=== PATIENT | female | born 1990 | race Caucasian/White ===

== ENCOUNTER 2016-09-10 22:09 | Inpatient (IN) | payer BC, MEDICAID ==
[2016-09-10] MEDS ORDERED: EPHEDRINE SULFATE INJ 50 MG/1 ML AMPULE IV ONE (22:35)
[2016-09-10] MEDS ORDERED: FENTANYL/BUPIVACAINE/NS/PF 100 ML EPI PRN (22:35)
[2016-09-10] MEDS ORDERED: DIPHENHYDRAMINE HCL 50 MG/ML VIAL IV PRN (22:35)
[2016-09-10] MEDS ORDERED: BENZOIN/ALOE VERA/STORAX/TOLU TINCTURE 60 ML TP PRN (22:35)
[2016-09-10] MEDS ORDERED: BUPIVACAINE HCL 0.25 % INJ/PF (2.5 MG/1 ML) 30 ML VIAL INFIL ONE (22:35)
[2016-09-10] MEDS ORDERED: EPHEDRINE SULFATE INJ 50 MG/1 ML AMPULE IV PRN (22:35)
[2016-09-10 22:52] LABS: ABSOLUTE BASOPHILS # (AUTO) 0.1 10^3/uL (0.0-0.2); ABSOLUTE MONOCYTES (AUTO) 0.9 10^3/uL (0.1-1.4); ABSOLUTE NEUT (AUTO) 11.2 10^3/uL (1.7-8.2); BASOPHILS % (AUTO) 0.4 % (0-2); EOSINOPHILS % (AUTO) 0.2 % (0-6); HEMATOCRIT 34.9 % (36.0-47.0); HEMOGLOBIN 11.9 g/dL (12.0-15.5); HGB HCT DIFFERENCE 0.8; LYMPHOCYTES % (AUTO) 13.9 % (13-45); MEAN CORPUSCULAR VOLUME 91 fl (80-97); MONOCYTES % (AUTO) 6.4 % (3-13); RED BLOOD COUNT 3.83 10^6/uL (3.72-5.28); RED CELL DISTRIBUTION WIDTH 13.9 % (11.5-14.0); SEGMENTED NEUTROPHILS % (AUTO) 79.1 % (42-78); WHITE BLOOD COUNT 14.1 10^3/uL (4.0-10.5)
[2016-09-10 22:57] LABS: APPEARANCE,URINE CLOUDY; BILIRUBIN,URINE NEGATIVE (NEGATIVE); GLUCOSE, URINE NEGATIVE (NEGATIVE); KETONES,URINE NEGATIVE (NEGATIVE); LEUKOCYTE ESTERASE,URINE MODERATE (NEGATIVE); NITRITE,URINE NEGATIVE (NEGATIVE); PROTEIN,URINE NEGATIVE (NEGATIVE); URINE SPECIFIC GRAVITY 1.009; UROBILINOGEN,URINE NEGATIVE mg/dL (<2.0)
[2016-09-10] MEDS ORDERED: BUPIVACAINE HCL 0.25 % INJ/PF (2.5 MG/1 ML) 30 ML VIAL ONE (23:03)
[2016-09-10] MEDS ORDERED: EPHEDRINE SULFATE INJ 50 MG/1 ML AMPULE ONE (23:03)
[2016-09-10] MEDS ORDERED: FENTANYL/BUPIVACAINE/NS/PF 200 MCG/100 ML RTUINJ EPI ONE (23:03)
[2016-09-10 23:29] LABS: URINE BARBITURATES SCREEN NEGATIVE; URINE METHADONE SCREEN NEGATIVE; URINE PHENCYCLIDINE SCREEN NEGATIVE
[2016-09-11] MEDS ORDERED: MISOPROSTOL 0.2 MG TABLET ONE (01:06)
[2016-09-11] MEDS ORDERED: LIDOCAINE 1% INJ-PF (10 MG/ML) 30 ML SDV ONE (01:06)
[2016-09-11] MEDS ORDERED: OXYTOCIN/NORMAL SALINE 20 UNIT/1,000 ML RTUINJ ONE (01:06)
[2016-09-11] MEDS ORDERED: ACETAMINOPHEN WITH CODEINE #3 TABLET PO PRN ×2 (02:01)
[2016-09-11] MEDS ORDERED: PSEUDOEPHEDRINE HCL 30 MG TABLET PO PRN (02:01)
[2016-09-11] MEDS ORDERED: DIPHENHYDRAMINE HCL 25 MG CAPSULE PO PRN (02:01)
[2016-09-11] MEDS ORDERED: BENZOCAINE/MENTHOL AEROSOL SPRAY 56 ML TOP PRN (02:01)
[2016-09-11] MEDS ORDERED: ACETAMINOPHEN 650 MG SUPP.RECT PR PRN (02:01)
[2016-09-11] MEDS ORDERED: PROMETHAZINE HCL 25 MG TABLET PO PRN (02:01)
[2016-09-11] MEDS ORDERED: ZOLPIDEM TARTRATE 5 MG TABLET PO PRN (02:01)
[2016-09-11] MEDS ORDERED: DIBUCAINE 1% OINTMENT 28 GM TP PRN (02:01)
[2016-09-11] MEDS ORDERED: PROMETHAZINE HCL INJ 25 MG/1 ML VIAL IV PRN (02:01)
[2016-09-11] MEDS ORDERED: OXYTOCIN/NORMAL SALINE 1,000 ML IV PRN (02:01)
[2016-09-11] MEDS ORDERED: NA PHOS,M-B/NA PHOS,DI-BA (ADULT) 133 ML ENEMA PR PRN (02:01)
[2016-09-11] MEDS ORDERED: PROMETHAZINE HCL 25 MG SUPP.RECT PR PRN (02:01)
[2016-09-11] MEDS ORDERED: MAGNESIUM HYDROXIDE SUSP 30 ML UDCUP PO PRN (02:01)
[2016-09-11] MEDS ORDERED: GLYCERIN/WITCH HAZEL LEAF 1 EACH MED..PAD TP PRN (02:01)
[2016-09-11] MEDS ORDERED: DIPH/PERTUSS(ACELL)/TETANUS VAC/PF 0.5 ML SYR (>=10YO) IM PRN (02:01)
--- NOTE | 2016-09-11 04:27 | Admission Physical ---
Datetime Report Generated by CPN: 09/11/2016 04:27 CURRENT ADMISSION Chief Complaint: Uterine Contractions Indication for Induction: Not Applicable Admit Plan: Admit to Unit; Initiate Labor Protocol ALLERGIES Medication Allergies: Yes Medication Allergies: Penicillins/MO/Hives (09/10/2016) Latex: No Latex Allergies Food Allergies: none Environmental Allergies: none OBSTETRICAL HISTORY EDC: 09/03/2016 00:00 : 3 Para: 1 Term: 1 : 0 SAB: 0 IAB: 0 Ectopic: 0 Livin Cesareans: 0 VBACs: 0 Multiple Births: 0 Current Procedures: Ultrasound; NST Obstetrical History Comments: G1: SAB G2:10/03/13 39.2 weeks G3: current SEE RECORDS Alcohol: No Marijuana : No Cocaine: No Other Illicit Drugs: No Cigarettes: Never Smoker. [id number] PHYSICAL EXAM General: Normal HEENT: Normal Neurologic: Normal Thyroid: Deferred Heart: Normal Lungs: Normal Breast: Deferred Back: Normal Abdomen: Normal Genitourinary Exam: Normal Extremities: Normal DTRs: Normal Pelvic Type: Adequate Vital Signs: Reviewed; Within Normal Limits VAGINAL EXAM Dilatation: 6 Effacement: 90 Station: -1 MEMBRANES Membranes: Intact FETUS A EGA: 41.0 Monitoring: External US FHR- Baseline: 135 Variability: Moderate 6-25bpm Accelerations: 15X15 Decelerations: None FHR Category: Category I PLANS FOR LABOR AND DELIVERY Labor and Delivery: Other, Specify Pain Management: Epidural Feeding Preference: Breast Benefit of Breast Feed Discussed: Yes Circumcision: N/A INFORMED CONSENT Signature: with User ID: [email or web address]
--- NOTE | 2016-09-11 04:28 | Delivery Summary ---
Del Sum A-C Datetime Report Generated by CPN: 09/11/2016 04:28 ADMISSION DATA Chief Complaint: Uterine Contractions Indication for Induction: Not Applicable Admission Impression: Postterm, Intrauterine ; Active Labor; Intact Membranes DELIVERY PERSONNEL Delivery Doctor:: Grady Clayton, DO Labor and Delivery Nurse:: Emmy Espinosa, fraud representative Nurse:: April Shea, RN Edging Machine Setter/AIR TRANSPORTATION PROVIDER: Hakan Ulicesel, AIR TRANSPORTATION PROVIDER MATERNAL INFORMATION Delivery Anesthesia: Epidural Medications After Delivery: Pitocin Drip 20 Units/1000ml NSS Estimated Blood Loss (ml): 200 Maternal Complications: None Provider Comments: of viable female in TERRY position Loose Nuchal cord x1 easily reduced Placenta delievered spontaneous and intact with 3v cord Fundus firm LABOR SUMMARY EDC: 09/03/2016 00:00 No. Babies in Womb: 1 Attempted: No Labor Anesthesia: Epidural LABOR INFORMATION Reason for Induction: Not Applicable Onset of Labor: 09/09/2016 22:29 Complete Dilatation: 09/10/2016 01:13 Oxytocin: N/A Group B Beta Strep: negative Antibiotics # of Doses: 0 Steroids Given: None Reason Steroids Not Administered: Not Applicable MEMBRANES Membranes Rupture Method: Spontaneous STAGES OF LABOR Stage 1 hr: 2 Stage 1 min: 44 Stage 2 hr: 24 Stage 2 min: 32 Stage 3 hr: 0 Stage 3 min: 4 Total Time in Labor hr: 27 Total Time in Labor min: 20 VAGINAL DELIVERY Episiotomy: None Laceration Extension: Second Degree Laceration Type: Perineal Laceration Repair: Yes Laceration Repair Note: clitoral and perineal lacs repired with 2-0 and 3-0 chromic in usual fashion with good hemostasis Sponge Count Correct: N/A Sharps Count Correct: Yes CSECTION DELIVERY Primary Indication: N/A Secondary Indication: N/A CSection Incidence: N/A Labor: N/A Elective: N/A CSection Incision: N/A BABY A INFORMATION Infant Delivery Date/Time: 09/11/2016 01:45 Method of Delivery: Vaginal Born in Route : No : N/A Forceps: N/A Vacuum Extraction: N/A Shoulder Dystocia : No PRESENTATION/POSITION BABY A Presentation: Cephalic Cephalic Presentation: Vertex Vertex Position: Right Occipital Anterior Breech Presentation: N/A PLACENTA INFORMATION BABY A Placenta Delivery Time : 09/11/2016 01:49 Placenta Method of Delivery: Spontaneous Placenta Status: Delivered SCORES BABY A Heart Rate 1 min: >100 bpm Resp Effort 1 min: Good Cry Reflex Irritability 1 min: Cough or Sneeze or Pulls Away Muscle Tone 1 min: Active Motion Color 1 min: Blue/Pale Resuscitation Effort 1 min: Tactile Stimulation SCORE 1 MIN: 8 Heart Rate 5 min: >100 bpm Resp Effort 5 min: Good Cry Reflex Irritability 5 min: Cough or Sneeze or Pulls Away Muscle Tone 5 min: Active Motion Color 5 min: Body [place], Extremities Blue SCORE 5 MIN: 9 INFORMATION BABY A Gestational Age at Delivery: 41.1 Gestational Status: Late Term- 41- 41.6 Weeks Infant Outcome : Liveborn Condition : Stable Infant Sex: Female IDENTIFICATION BABY A Infant Verification Date/Time: 09/11/2016 01:53 ID Band Number: [id number] Mother's Name Verified: Yes Infant RN Verifying : B Shabbir, RN Additional Verifying Personnel: S Marley, RN WEIGHT/LENGTH BABY A Infant Birthweight (gm): 3240 Weight (lb): 7 Weight (oz): 2 Infant Length (in): 20.00 Infant Length (cm): 50.80 CORD INFORMATION BABY A No. Cord Vessels: 3 Nuchal Cord : Around Neck x1, Loose Cord Blood Taken: Yes-For Eval (Mom's Blood Type - or O+) Infant Suction: Mouth; Nose ASSESSMENT BABY A Complications: None Physical Findings at Delivery: Within Normal Limits Infant Respirations: Appears Normal Skin to Skin: Yes Bisque Grader/ALS Called : No Care By: B Shea, RN Transferred To: Remains with Mother BABY B INFORMATION : N/A SIGNATURES Signature: with User ID: [email or web address]
--- NOTE | 2016-09-11 04:45 | L&D General Admission ---
General Admit Datetime Report Generated by CPN: 09/11/2016 04:45 INFORMATION Patient Age: 25 (01/03/2016 20:08:QS system process) EDC: 09/03/2016 00:00 (08/29/2016 16:09:Lisa Gonzalez RN) : 3 (08/29/2016 16:09:Lisa Gonzalez RN) Para: 1 (09/03/2016 11:21:Christel Roach RN) Para: 1 (08/29/2016 16:09:Lisa Gonzalez RN) Term: 1 (08/29/2016 16:09:Christel Roach RN) : 0 (08/29/2016 16:09:Christel Roach RN) Spontaneous Abortions: 0 (08/29/2016 16:09:Christel Roach RN) Induced Abortions: 0 (08/29/2016 16:09:Christel Roach RN) Livin (08/29/2016 16:09:Lisa Gonzalez RN) Cesareans: 0 (08/29/2016 16:09:Christel Roach RN) VBACs: 0 (08/29/2016 16:09:Christel Roach RN) Ectopic: 0 (08/29/2016 16:09:Christel Roach RN) Multiple Births: 0 (08/29/2016 16:09:Christel Roach RN) Baby, Number in Womb: 1 (09/03/2016 11:21:ANGY Draper) Baby, Number in Womb: 1 (08/29/2016 16:46:Lisa Gonzalez RN) CARE Primary Director Of Midwifery/Staff Midwife: [facility] (08/29/2016 16:09:Lisa Gonzalez RN) Adequate Care: Yes (08/29/2016 16:09:Christel Roach RN) Prepregnancy Weight (lb): 148 (08/29/2016 16:09:Lisa Gonzalez RN) Prepregnancy Weight (kg): 67.3 (08/29/2016 16:09:QS system process) Height (in): 63 (09/11/2016 04:25:QS system process) Height (in): 63 (09/10/2016 22:21:QS system process) Height (in): 63 (09/03/2016 11:02:QS system process) Height (in): 63 (09/03/2016 10:52:QS system process) Height (in): 63 (08/29/2016 16:12:QS system process) Height (in): 63 (08/29/2016 16:06:QS system process) Height (in): 63 (01/03/2016 20:08:QS system process) ALLERGIES Medication Allergy: Yes (08/29/2016 16:09:Lisa Gonzalez RN) Medication Allergies: Penicillins/MO/Hives (09/10/2016) (09/10/2016 22:21:QS system process) Medication Allergies: Penicillins/MO/Hives (09/03/2016) (09/03/2016 10:52:QS system process) Medication Allergies: Penicillins/MO/Hives (08/29/2016) (08/29/2016 16:05:QS system process) Medication Allergies: Penicillins/MO/Hives (10/03/2013) (01/03/2016 20:08:QS system process) Latex Allergy: No Latex Allergies (08/29/2016 16:09:Lisa Gonzalez RN) Food Allergies: none (08/29/2016 16:09:April Shea RN) Environmental Allergies: none (08/29/2016 16:09:April Shea RN) COMMUNICATION Primary Language: Singaporean (08/29/2016 16:09:Lisa Gonzalez RN) Medical Tx Preferred Language: Singaporean (08/29/2016 16:09:Christel Roach RN) Communication Barrier(s): None (08/29/2016 16:09:Christel Roach RN) DEMOGRAPHICS Address: [address] [place] [id number] (01/03/2016 20:08:QS system process) Zipcode: [id number] (01/03/2016 20:08:QS system process) Home (01/03/2016 20:08:QS system process) Work (01/03/2016 20:08:QS system process) SSN: [id number] (01/03/2016 20:08:QS system process) Next of Kin Name: ELIEZER JC (01/03/2016 20:08:QS system process) Next of Kin (01/03/2016 20:08:QS system process) Next of Kin Relationship: SPO (01/03/2016 20:08:QS system process) Date of : 1990 (01/03/2016 20:08:QS system process) Marital Status: (01/03/2016 20:08:QS system process) Sex: Female (01/03/2016 20:08:QS system process) Race: (01/03/2016 20:08:QS system process) Ethnicity: Non- or (01/03/2016 20:08:QS system process) Zoroastrian: Other (01/03/2016 20:08:QS system process) DRUG AND ALCOHOL USE Alcohol: No (08/29/2016 16:09:Emmy Ellsworth RN) Cigarettes: Never Smoker. [id number] (08/29/2016 16:09:Emmy Ellsworth RN) Marijuana: No (08/29/2016 16:09:Emmy Ellsworth RN) Cocaine: No (08/29/2016 16:09:Emmy Ellsworth RN) Other Illicit Drugs: No (08/29/2016 16:09:Emmy Ellsworth RN) VACCINE HISTORY Influenza Vaccine: Yes (08/29/2016 16:09:Lisa Gonzalez RN) Influenza Date: 06/25/16 (08/29/2016 16:09:Lisa Gonzalez RN) Pneumococcal Vaccine: No (08/29/2016 16:09:April Shea RN) Tetanus Vaccine: Yes (08/29/2016 16:09:Lisa Gonzalez RN) Tetanus Date: 08/23/2013 (08/29/2016 16:09:Lisa Gonzalez RN) Tdap Vaccine: Yes (08/29/2016 16:09:Lisa Gonzalez RN) Tdap Date: 08/23/2013 (08/29/2016 16:09:Lisa Gonzalez RN) Hepatitis B Vaccine: Yes (08/29/2016 16:09:April Shea RN) Practice Director: [facility] (08/29/2016 16:09:Emmy Ellsworth RN) Feeding Preference: Breast (08/29/2016 16:09:Emmy Ellsworth RN) Benefit of Breast Feed Discussed: Yes (08/29/2016 16:09:Emmy Ellsworth RN) Circumcision: N/A (08/29/2016 16:09:Emmy Ellsworth RN) Classes Attended: No (08/29/2016 16:09:Emmy Ellsworth RN) Tubal Ligation: No (08/29/2016 16:09:Emmy Ellsworth RN) Tubal Authorization Signed: N/A (08/29/2016 16:09:Emmy Ellsworth RN) Consent: N/A (08/29/2016 16:09:Emmy Ellsworth RN) Consent Signed: N/A (08/29/2016 16:09:Emmy Ellsworth RN) Pain Management Plans: Epidural (08/29/2016 16:09:Emmy Ellsworth RN) Plans for Labor and Delivery: Other, Specify (08/29/2016 16:09:Emmy Ellsworth RN) Other Labor and Delivery Plans: delayed cord clamping, guide baby out (08/29/2016 16:09:Emmy Ellsworth RN) Support Person: Eliezer Jc (08/29/2016 16:09:Emmy Ellsworth RN) Support Person Relationship: (08/29/2016 16:09:Emmy Ellsworth RN) Cultural/Spritual Practice: No (08/29/2016 16:09:Emmy Ellsworth RN) Spir/Cult Dietary Needs: No (08/29/2016 16:09:Emmy Ellsworth RN) LIVING SITUATION/DISCHARGE PLAN Living Arrangements: House (08/29/2016 16:09:Emmy Ellsworth RN) Adequate Access to:: Electric; Heat; Refrigeration; Plumbing/Running water; Phone; Transportation (08/29/2016 16:09:Emmy Ellsworth RN) WIC Program: Yes (08/29/2016 16:09:Emmy Ellsworth RN) Discharge Spring Assembler Person: Eliezer Citlali (08/29/2016 16:09:Emmy Ellsworth RN) Person to Help after Discharge: yes (08/29/2016 16:09:Emmy Ellsworth RN) Currently Using Commun Resources: Yes (08/29/2016 16:09:Emmy Ellsworth RN) Specify Current Resource Used: Medicaid (08/29/2016 16:09:Emmy Ellsworth RN) Car Seat for Discharge: Yes (08/29/2016 16:09:Emmy Ellsworth RN) Adoption Requested: No (Annotations: Data stored by CPN on behalf of user) (08/29/2016 16:09:Emmy Ellsworth RN) LABS Blood Type: O Negative (08/29/2016 16:09:Lisa Gonzalez RN) Antibody Screen: negative (08/29/2016 16:09:Emmy Ellsworth RN) Hemoglobin: 11.9 L (09/10/2016 22:39:QS system process) Hematocrit: 34.9 L (09/10/2016 22:39:QS system process) MCV: 91 (09/10/2016 22:39:QS system process) Group Beta Strep: negative (08/29/2016 16:09:Emmy Ellsworth RN) Gonorrhea: Negative (08/29/2016 16:09:Lisa Gonzalez RN) Chlamydia: Negative (08/29/2016 16:09:Lisa Gonzalez RN) RPR/VDRL: Nonreactive (08/29/2016 16:09:Emmy Ellsworth RN) Hepatitis B: Negative (08/29/2016 16:09:Lisa Gonzalez RN) Rubella: Immune (08/29/2016 16:09:Lisa Gonzalez RN) OB/PREVIOUS HISTORY Current Procedures: Ultrasound; NST (08/29/2016 16:09:April Shea RN) Comments Obstetrical History: G1: SAB G2:10/03/13 39.2 weeks G3: current (08/29/2016 16:09:Lisa Gonzalez RN)
--- NOTE | 2016-09-11 04:45 | L&D Flow Sheet ---
LD Flowsheet Datetime Report Generated by CPN: 09/11/2016 04:45 Datetime: 09/11/2016 04:13 Vital Signs Stage of : Recovery (Emmy Ellsworth RN) NBP Sys/Nelly/Mean (mmHg): 111 (QS system process) : 57 (QS system process) : 78 (QS system process) Pulse: 88 (QS system process) Temperature Route: Oral (Emmy Ellsworth RN) Pain Pain Scale: 0 (Emmy Errichiello, RN) Pain Presence: None/Denies (Emmy Errichiello, RN) Pain Type: N/A (Emmy Errichiello, RN) Datetime: 09/11/2016 03:58 Vital Signs Stage of : Recovery (Emmy Errichiello, RN) NBP Sys/Nelly/Mean (mmHg): 111 (QS system process) : 55 (QS system process) : 77 (QS system process) Pulse: 92 (QS system process) Pain Pain Scale: 0 (Emmy Errichiello, RN) Pain Presence: None/Denies (Emmy Errichiello, RN) Pain Type: N/A (Emmy Errichiello, RN) Datetime: 09/11/2016 03:43 Vital Signs Stage of : Recovery (Emmy Errichiello, RN) NBP Sys/Nelly/Mean (mmHg): 114 (QS system process) : 57 (QS system process) : 80 (QS system process) Pulse: 99 (QS system process) Pain Pain Scale: 0 (Emmy Errichiello, RN) Pain Presence: None/Denies (Emmy Samichiello, RN) Pain Type: N/A (Emmy Errichiello, RN) Datetime: 09/11/2016 03:28 Vital Signs Stage of : Recovery (Emmy Errichiello, RN) NBP Sys/Nelly/Mean (mmHg): 110 (QS system process) : 63 (QS system process) : 81 (QS system process) Pulse: 96 (QS system process) Pain Pain Scale: 0 (Emmy Ellsworth RN) Pain Presence: None/Denies (Emmy Ellsworth RN) Pain Type: N/A (Emmy Seng, RN) Datetime: 09/11/2016 03:13 Vital Signs Stage of : Recovery (Emmy Ellsworth RN) NBP Sys/Nelly/Mean (mmHg): 108 (QS system process) : 60 (QS system process) : 79 (QS system process) Pulse: 100 (QS system process) Pain Pain Scale: 0 (Emmy Ellsworth, RN) Pain Presence: None/Denies (Emmy Ellsworth, RN) Pain Type: N/A (Emmy Samichiello, RN) Datetime: 09/11/2016 02:58 Vital Signs Stage of : Recovery (Emmy Ellsworth, RN) NBP Sys/Nelly/Mean (mmHg): 112 (QS system process) : 61 (QS system process) : 81 (QS system process) Pulse: 92 (QS system process) Pain Pain Scale: 0 (Emmy Ellsworth, RN) Pain Presence: None/Denies (Emmy Ellsworth, RN) Pain Type: N/A (Emmy Samichiello, RN) Datetime: 09/11/2016 02:43 Vital Signs Stage of : Recovery (Emmy Ellsworth, RN) NBP Sys/Nelly/Mean (mmHg): 119 (QS system process) : 64 (QS system process) : 84 (QS system process) Pulse: 97 (QS system process) Pain Pain Scale: 0 (Emmy Ellsworth RN) Pain Presence: None/Denies (Emmy Ellsworth RN) Pain Type: N/A (Emmy Ellsworth, RN) Datetime: 09/11/2016 02:29 Vital Signs Stage of : Recovery (Emmy Ellsworth RN) NBP Sys/Nelly/Mean (mmHg): 128 (QS system process) : 66 (QS system process) : 90 (QS system process) Pulse: 88 (QS system process) Pain Pain Scale: 0 (Emmy Ellsworth RN) Pain Presence: None/Denies (Emmy Ellsworth, RN) Pain Type: N/A (Emmy Samichikinga, RN) Datetime: 09/11/2016 02:14 Vital Signs Stage of : Recovery (Emmy Ellsworth, JASSON) NBP Sys/Nelly/Mean (mmHg): 95 (QS system process) : 50 (QS system process) : 66 (QS system process) Pulse: 105 (QS system process) Pain Pain Scale: 0 (Emmy Errichiello, RN) Pain Presence: None/Denies (Emmy Errichiello, RN) Pain Type: N/A (Emmy Errichiello, RN) Datetime: 09/11/2016 02:08 NBP Sys/Nelly/Mean (mmHg): 115 (QS system process) : 70 (QS system process) : 88 (QS system process) Pulse: 110 (QS system process) Datetime: 09/11/2016 02:00 Vital Signs Stage of : Recovery (Emmy Errichiello, RN) Pain Pain Scale: 0 (Emmy Errichiello, RN) Pain Presence: None/Denies (Emmy Errichiello, RN) Pain Type: N/A (Emmy Errichiello, RN) Datetime: 09/11/2016 01:50 Vital Signs Stage of : Recovery (Emmy Errichiello, RN) Datetime: 09/11/2016 01:45 Comments: of baby girl at 0145 (Emmy Errichiello, RN) Membrane Comments: Membranes ruptured at unknown time. Pt did not rupture prior to coming to hospital and remained intact prior to delivery. (Emmy Errichiello, RN) Datetime: 09/11/2016 01:30 Vital Signs Stage of : Labor (Emmy Errichiello, RN) Uterine Activity Monitor Mode: External (Emmy JASSON Ellsworth) Monitor Interventions for UA: [place] Adjusted (Emmy Ellsworth RN) Frequency (min): 1-3.5 (Emmy Ellsworth RN) Quality: Moderate (Emmy Seng, RN) Duration (sec): 50-100 (Emmy Ellsworth RN) Resting Tone (Palpate): Relaxed (Emmy Seng, JASSON) Assessment A Monitor Mode: External US (Emmy Errichiello, RN) Monitor Interventions for FHR: Ultrasound Adjusted (Emmy Ellsworth RN) FHR Baseline Rate : 130 (Emmy Ellsworth RN) FHR Baseline Changes: No Baseline Change (Emmy Ellsworth RN) Variability: Moderate 6-25 bpm (Emmy Ellsworth RN) Accelerations: 15X15 (Emmy Ellsworth RN) Decelerations: None (Emmy Ellsworth RN) Patient Position/Activity: Left Tilt; Semi-Fowlers (Emmy Ellsworth RN) Communication Communication: RN at Bedside; RN Reviewed Strip (Emmy Ellsworth RN) Datetime: 09/11/2016 01:29 NBP Sys/Nelly/Mean (mmHg): 147 (QS system process) : 70 (QS system process) : 100 (QS system process) Pulse: 106 (QS system process) LaborFlag: Labor (QS system process) Datetime: 09/11/2016 01:17 Stage 2 Stage 2 Comments: Rn at bedside continuously monitoring FHR while pushing (April Shea, RN) Datetime: 09/11/2016 01:16 Communication Communication: Provider at Bedside (April Shea, RN) Communication Comments: Dr Clayton at bedside (April Shea, RN) Datetime: 09/11/2016 01:14 NBP Sys/Nelly/Mean (mmHg): 147 (QS system process) : 67 (QS system process) : 96 (QS system process) Pulse: 100 (QS system process) LaborFlag: Labor (QS system process) Datetime: 09/11/2016 01:13 Vaginal Exam Dilatation (cm): 10.0 (Emmy Errichiello, RN) Effacement (%): 100 (Emmy Errichiello, RN) Station: 1 (Emmy Errichiello, RN) Exam by: C. Fore, RN (Emmy Errichiello, RN) Datetime: 09/11/2016 01:07 I/O Interventions: Méndez Discontinued (Emmy Errichiello, RN) Datetime: 09/11/2016 01:01 Vaginal Exam Dilatation (cm): 9.5 (Emmy Errichiello, RN) Effacement (%): 100 (Emmy Errichiello, RN) Station: 1 (Emmy Errichiello, RN) Exam by: C Fore RN (Emmy Errichiello, RN) Datetime: 09/11/2016 01:00 Vital Signs Stage of : Labor (Emmy Errichiello, RN) Uterine Activity Monitor Mode: External (Emmy Ellsworth RN) Frequency (min): 1.5-4 (Emmy Ellsworth RN) Quality: Moderate (Emmy Ellsworth RN) Resting Tone (Palpate): Relaxed (Emmy Ellsworth RN) Assessment A Monitor Mode: External US (Emmy Ellsworth RN) Monitor Interventions for FHR: Ultrasound Adjusted (Emmy Ellsworth RN) FHR Baseline Rate : 130 (Emmy Ellsworth RN) FHR Baseline Changes: No Baseline Change (Emmy Ellsworth RN) Variability: Moderate 6-25 bpm (Emmy Ellsworth RN) Accelerations: 15X15 (Emmy Ellsworth RN) Decelerations: None (Emmy Ellsworth RN) Pain Presence: Intermittent (Emmy Ellsworth RN) Pain Type: Pressure (Emmy Ellsworth RN) Pain Location: Abdomen (Emmy Ellsworth RN) Pain Relief Measures: Comfort Measures (Emmy Ellsworth RN) Patient Position/Activity: Left Tilt; Semi-Fowlers (Emmy Ellsworth RN) Comfort Measures: Breathing/Relaxation; Coaching; Family Support (Emmy Ellsworth RN) Communication Communication: RN at Bedside; RN Reviewed Strip (Emmy Samyoselynello, RN) LaborFlag: Labor (QS system process) Datetime: 09/11/2016 00:59 NBP Sys/Nelly/Mean (mmHg): 135 (QS system process) : 79 (QS system process) : 101 (QS system process) Pulse: 100 (QS system process) LaborFlag: Labor (QS system process) Datetime: 09/11/2016 00:43 NBP Sys/Nelly/Mean (mmHg): 119 (QS system process) : 75 (QS system process) : 91 (QS system process) Pulse: 92 (QS system process) LaborFlag: Labor (QS system process) Datetime: 09/11/2016:30 Vital Signs Stage of : Labor (Emmy Errichiello, RN) Uterine Activity Monitor Mode: External (Emmy Ellsworth RN) Frequency (min): 1.5-3 (Emmy Ellsworth RN) Quality: Moderate (Emmy Ellsworth RN) Duration (sec): 50-90 (Emmy Ellsworth RN) Resting Tone (Palpate): Relaxed (Emmy Ellsworth RN) Assessment A Monitor Mode: External US (Emmy Ellsworth RN) Monitor Interventions for FHR: Ultrasound Adjusted (Emmy Ellsworth RN) FHR Baseline Rate : 130 (Emmy Ellsworth RN) FHR Baseline Changes: No Baseline Change (Emmy Ellsworth RN) Variability: Moderate 6-25 bpm (Emmy Ellsworth RN) Accelerations: 15X15 (Emmy Ellsworth RN) Decelerations: None (Emmy Ellsworth RN) Pain Presence: Intermittent (Emmy Ellsworth RN) Pain Type: Pressure (Emmy Ellsworth RN) Pain Coping: Talking Through Contractions (Emmy Ellsworth RN) Patient Position/Activity: Left Tilt; Semi-Fowlers (Emmy Ellsworth RN) Communication Communication: RN at Bedside; RN Reviewed Strip (Emmy Ellsworth RN) LaborFlag: Labor (QS system process) Datetime: 09/11/2016 00:28 NBP Sys/Nelly/Mean (mmHg): 119 (QS system process) : 74 (QS system process) : 90 (QS system process) Pulse: 91 (QS system process) LaborFlag: Labor (QS system process) Datetime: 09/11/2016 00:15 Vital Signs Stage of : Labor (Emmy Errichiello, RN) Uterine Activity Monitor Mode: External (Emmy Ellsworth, RN) Monitor Interventions for UA: [place] Adjusted (Emmy Ellsworth, RN) Frequency (min): 3 (Emmy Ellsworth, RN) Quality: Moderate (Emmy Ellsworth, RN) Duration (sec): 70-110 (Emmy Ellsworth, RN) Resting Tone (Palpate): Relaxed (Emmy Ellsworth, RN) Assessment A Monitor Mode: External US (Emmy Ellsworth, RN) Monitor Interventions for FHR: Ultrasound Adjusted (Emmy Ellsworth, RN) FHR Baseline Rate : 130 (Emmy Ellsworth, RN) FHR Baseline Changes: No Baseline Change (Emmy Ellsworth, RN) Variability: Moderate 6-25 bpm (Emmy Erryoselynello, RN) Accelerations: 15X15 (Emmy Erryoselynello, RN) Decelerations: None (Emmy Reaello, RN) Patient Position/Activity: Left Tilt; Semi-Fowlers (Emmy Ellsworth, RN) Communication Communication: RN Reviewed Strip (Emmy Errichiello, RN) Datetime: 09/11/2016 00:14 NBP Sys/Nelly/Mean (mmHg): 116 (QS system process) : 74 (QS system process) : 87 (QS system process) Pulse: 91 (QS system process) LaborFlag: Labor (QS system process) Datetime: 09/11/2016 00:00 Vital Signs Stage of : Labor (Emmy Ellsworth RN) Uterine Activity Monitor Mode: External (Emmy Ellsworth RN) Monitor Interventions for UA: [place] Adjusted (Emmy Ellsworth RN) Frequency (min): 4-5 (Emmy Ellsworth RN) Quality: Mild/Moderate (Emmy Ellsworth RN) Duration (sec): 90-120 (Emmy Ellsworth RN) Resting Tone (Palpate): Relaxed (Emmy Ellsworth RN) Assessment A Monitor Mode: External US (Emmy Ellsworth RN) Monitor Interventions for FHR: Ultrasound Adjusted (Emmy Ellsworth RN) FHR Baseline Rate : 130 (Emmy Ellsworth RN) FHR Baseline Changes: No Baseline Change (Emmy Ellsworth RN) Variability: Moderate 6-25 bpm (Emmy Ellsworth RN) Accelerations: 15X15 (Emmy Ellsworth RN) Decelerations: None (Emmy Ellsworth RN) Pain Pain Scale: 1 (Emmy Ellsworth RN) Pain Presence: Intermittent (Emmy Ellsworth RN) Pain Type: Pressure (Emmy Ellsworth RN) Pain Location: Abdomen (Emmy Ellsworth RN) Pain Goal: 1 (Emmy Ellsworth RN) Pain Relief Measures: Comfort Measures (Emmy Ellsworth RN) Pain Coping: Talking Through Contractions (Emmy Ellsworth RN) Patient Position/Activity: Left Tilt; Semi-Fowlers (Emmy Ellsworth RN) Comfort Measures: Breathing/Relaxation; Coaching; Family Support (Emmy Ellsworth RN) Communication Communication: RN at Bedside; RN Reviewed Strip (Emmy Ellsworth RN) LaborFlag: Labor (QS system process) Datetime: 09/10/2016 23:58 NBP Sys/Nelly/Mean (mmHg): 108 (QS system process) : 66 (QS system process) : 81 (QS system process) Pulse: 89 (QS system process) LaborFlag: Labor (QS system process) Datetime: 09/10/2016 23:45 Vital Signs Stage of : Labor (Emmy Errichiello, RN) NBP Sys/Nelly/Mean (mmHg): 115 (QS system process) : 65 (QS system process) : 80 (QS system process) Pulse: 96 (QS system process) Uterine Activity Monitor Mode: External (Emmy Ellwsorth, RN) Monitor Interventions for UA: [place] Adjusted (Emmy Ellsworth, RN) Frequency (min): 3-5 (Emmy Ellsworth RN) Quality: Mild/Moderate (Emmy Ellsworth, RN) Duration (sec): 40-110 (Emmy Ellsworth, RN) Resting Tone (Palpate): Relaxed (Emmy Ellsworth, RN) Assessment A Monitor Mode: External US (Emmy Ellsworth, RN) Monitor Interventions for FHR: Ultrasound Adjusted (Emmy Ellsworth, RN) FHR Baseline Rate : 120 (Emmy Ellsworth, RN) FHR Baseline Changes: No Baseline Change (Emmy Ellsworth, RN) Variability: Moderate 6-25 bpm (Emmy Seng, RN) Accelerations: 15X15 (Emmy Reaello, RN) Decelerations: None (Emmy Reaello, RN) Pain Pain Scale: 2 (Emmy Ellsworth RN) Pain Presence: Intermittent (Emmy Ellsworth RN) Pain Type: Pressure (Emmy Ellsworth RN) Pain Goal: 1 (Emmy Ellsworth RN) Pain Relief Measures: Comfort Measures (NITIN Shah Pain Coping: Talking Through Contractions (Emmy Ellsworth RN) Patient Position/Activity: Left Tilt; Semi-Fowlers (Emmy Ellsworth RN) Comfort Measures: Breathing/Relaxation; Coaching; Family Support (Emmy Ellsworth RN) Communication Communication: RN at Bedside; RN Reviewed Strip (Emmy Ellsworth RN) LaborFlag: Labor (QS system process) Datetime: 09/10/2016 23:30 Vital Signs Stage of : Labor (Emmy Errichiello, RN) Uterine Activity Monitor Mode: External (Emmy Seng, RN) Frequency (min): 2.5-3 (Emmy Seng, RN) Quality: Moderate (Emmy Samichikinga, RN) Duration (sec): 60-110 (Emmy Samichiello, RN) Resting Tone (Palpate): Relaxed (Emmy Errichiello, RN) Assessment A Monitor Mode: External US (Emmy Ellsworth RN) Monitor Interventions for FHR: Ultrasound Adjusted (Emmy Ellsworth RN) FHR Baseline Rate : 125 (Emmy Ellsworth RN) FHR Baseline Changes: No Baseline Change (Emmy Ellsworth RN) Variability: Moderate 6-25 bpm (Emmy Ellsworth RN) Accelerations: 15X15 (Emmy Ellsworth RN) Decelerations: None (Emmy Ellsworth RN) Patient Position/Activity: Left Tilt; Semi-Fowlers (Emmy Ellsworth RN) Communication Communication: RN at Bedside; RN Reviewed Strip (Emmy Ellsworth RN) Datetime: 09/10/2016 23:28 NBP Sys/Nelly/Mean (mmHg): 94 (QS system process) : 52 (QS system process) : 70 (QS system process) Pulse: 92 (QS system process) LaborFlag: Labor (QS system process) Datetime: 09/10/2016 23:27 NBP Sys/Nelly/Mean (mmHg): 98 (QS system process) : 56 (QS system process) : 74 (QS system process) Pulse: 93 (QS system process) LaborFlag: Labor (QS system process) Datetime: 09/10/2016 23:26 NBP Sys/Nelly/Mean (mmHg): 101 (QS system process) : 59 (QS system process) : 77 (QS system process) Pulse: 101 (QS system process) LaborFlag: Labor (QS system process) Datetime: 09/10/2016 23:25 NBP Sys/Nelly/Mean (mmHg): 103 (QS system process) : 59 (QS system process) : 75 (QS system process) Pulse: 90 (QS system process) Vaginal Exam Dilatation (cm): 6.0 (Emmy Ellsworth RN) Effacement (%): 90 (Emmy Ellsworth RN) Station: 0 (Emmy Ellsworth RN) Exam by: Jack Espinosa RN (Emmy Ellsworth RN) I/O Interventions: Méndez Cath Inserted (Emmy Ellsworth RN) LaborFlag: Labor (QS system process) Datetime: 09/10/2016 23:24 NBP Sys/Nelly/Mean (mmHg): 103 (QS system process) : 58 (QS system process) : 79 (QS system process) Pulse: 93 (QS system process) LaborFlag: Labor (QS system process) Datetime: 09/10/2016 23:23 NBP Sys/Nelly/Mean (mmHg): 103 (QS system process) : 55 (QS system process) : 74 (QS system process) Pulse: 100 (QS system process) LaborFlag: Labor (QS system process) Datetime: 09/10/2016 23:22 NBP Sys/Nelly/Mean (mmHg): 109 (QS system process) : 68 (QS system process) : 82 (QS system process) Pulse: 111 (QS system process) LaborFlag: Labor (QS system process) Datetime: 09/10/2016 23:21 NBP Sys/Nelly/Mean (mmHg): 119 (QS system process) : 70 (QS system process) : 88 (QS system process) Pulse: 110 (QS system process) Epidural Procedure Other: Pump Started (Emmy Ellsworth RN) LaborFlag: Labor (QS system process) Datetime: 09/10/2016 23:20 NBP Sys/Nelly/Mean (mmHg): 127 (QS system process) : 81 (QS system process) : 98 (QS system process) Pulse: 105 (QS system process) LaborFlag: Labor (QS system process) Datetime: 09/10/2016 23:19 NBP Sys/Nelly/Mean (mmHg): 130 (QS system process) : 87 (QS system process) : 105 (QS system process) Pulse: 106 (QS system process) LaborFlag: Labor (QS system process) Datetime: 09/10/2016 23:18 NBP Sys/Nelly/Mean (mmHg): 128 (QS system process) : 67 (QS system process) : 91 (QS system process) Pulse: 100 (QS system process) Epidural Procedure: Cath Placed; Loading Dose (Emmy Errichiello, RN) LaborFlag: Labor (QS system process) Datetime: 09/10/2016 23:17 Anesthesia Anesthesia Plans: Epidural (Emmy Errichiello, RN) Epidural Procedure: Test Dose (Emmy Errichiello, RN) Datetime: 09/10/2016 23:11 NBP Sys/Nelly/Mean (mmHg): 131 (QS system process) : 71 (QS system process) : 95 (QS system process) Pulse: 99 (QS system process) LaborFlag: Labor (QS system process) Datetime: 09/10/2016 23:07 Anesthesia Comments: Dr Joce at b/s (Emmy Errichiello, RN) Datetime: 09/10/2016 23:06 Comments: Pt sitting up for epidural (Emmy Errichiello, RN) Datetime: 09/10/2016 23:01 Procedure TIME OUT Procedure Verify: Correct Patient Identity; Correct Side and Site are Marked; Accurate Procedure Consent Form; Agreement on Procedure to be Done; Correct Patient Position (Emmy Samyoselynello, RN) Anesthesia Anesthesia Plans: Epidural (Emmy Ellsworth, RN) Anesthesia Comments: Call placed to Dr Hobson for epidural placement. MD states he will be up shortly. (Emmy Ellsworth, RN) Datetime: 09/10/2016 23:00 Vital Signs Stage of : Labor (Emmy Errichiello, RN) Uterine Activity Monitor Mode: External (Emmy JASSON Ellsworth) Frequency (min): 2 (Emmy Ellsworth RN) Quality: Moderate (Emmy Ellsworth RN) Duration (sec): 50-90 (Emmy Ellsworth RN) Resting Tone (Palpate): Relaxed (Emmy Ellsworth, RN) Assessment A Monitor Mode: External US (Emmy Ellsworth RN) Monitor Interventions for FHR: Ultrasound Adjusted (Emmy Ellsworth RN) FHR Baseline Rate : 125 (Emmy Ellsworth RN) FHR Baseline Changes: No Baseline Change (Emmy Ellsworth RN) Variability: Moderate 6-25 bpm (Emmy Ellsworth RN) Accelerations: 10X10 (Emmy Ellsworth RN) Decelerations: None (Emmy Ellsworth RN) Pain Presence: Intermittent (Emmy Ellsworth RN) Pain Type: Contraction (Emmy Ellsworth RN) Pain Location: Abdomen (Emmy Ellsworth RN) Pain Relief Measures: Comfort Measures (Emmy Ellsworth RN) Pain Coping: Breathing Through Contractions (Emmy Ellsworth RN) Patient Position/Activity: Left Tilt; Semi-Fowlers (Emmy Ellsworth RN) Comfort Measures: Breathing/Relaxation; Coaching; Family Support (Emmy Ellsworth RN) Communication Communication: RN at Bedside; RN Reviewed Strip (Emmy Ellsworth RN) LaborFlag: Labor (QS system process) Datetime: 09/10/2016 22:56 NBP Sys/Nelly/Mean (mmHg): 132 (QS system process) : 76 (QS system process) : 97 (QS system process) Pulse: 100 (QS system process) LaborFlag: Labor (QS system process) Datetime: 09/10/2016 22:50 I/O Interventions: Up to BR (Emmy Errichiello, RN) Datetime: 09/10/2016 22:39 Vital Signs Stage of : Labor (Emmy Samichiello, RN) Respirations: 18 (Emmy Errichiello, RN) Uterine Activity Monitor Mode: External (Emmy Seng, RN) Monitor Interventions for UA: [place] Adjusted (Emmy Ellsworth, RN) Frequency (min): 2-5 (Emmy Seng, RN) Quality: Mild (Emmy Samichiello, RN) Duration (sec): 70-90 (Emmy Ellsworth, RN) Resting Tone (Palpate): Relaxed (Emmy Seng, RN) Assessment A Monitor Mode: External US (Emmy Errichiello, RN) Monitor Interventions for FHR: Ultrasound Adjusted (Emmy Ellsworth RN) FHR Baseline Rate : 130 (Emmy Ellsworth RN) FHR Baseline Changes: No Baseline Change (Emmy Ellsworth RN) Variability: Moderate 6-25 bpm (Emmy Ellsworth RN) Accelerations: 15X15 (Emmy Ellsworth RN) Decelerations: None (Emmy Ellsworth RN) Pain Pain Scale: 4 (Emmy Ellsworth RN) Pain Presence: Intermittent (Emmy Ellsworth RN) Pain Type: Contraction (Emmy Ellsworth RN) Pain Location: Abdomen (Emmy Ellsworth RN) Pain Goal: 1 (Emmy Ellsworth RN) Pain Relief Measures: Comfort Measures (Emmy Ellsworth RN) Pain Coping: Breathing Through Contractions (Emmy Ellsworth RN) Pain Assessment Comments: with UC's (Emmy Ellsworth RN) Membrane Status: Intact (Emmy Ellsworth RN) Maternal Assessment Level of Consciousness: Fully Conscious (Emmy Reaello, RN) Maternal Assessment Level of Consciousness: Fully Conscious (Emmy Ellsworth, RN) DTR's/Clonus: DTRs 2+; No Clonus (Emmy Ellsworth, RN) DTR's/Clonus: DTRs 2+; No Clonus (Emmy Ellsworth, RN) Headache: Denies (Emmy Ellsworth RN) Headache: Denies (Emmy Ellsworth, RN) Breath Sounds, Left: Clear and Equal (Emmy Seng, RN) Breath Sounds, Left: Clear and Equal (Emmy Seng, RN) Breath Sounds, Right: Clear and Equal (Emmy Reaello, RN) Breath Sounds, Right: Clear and Equal (Emmy Reaello, RN) Nausea/Vomiting: Denies (Emmy Ellsworth, RN) RUQ Epigastric Pain: Denies (Emmy Ellsworth RN) Patient Position/Activity: Left Tilt; Semi-Fowlers (Emmy Ellsworth, RN) Comfort Measures: Breathing/Relaxation; Coaching; Family Support (Emmy Ellsworth, RN) Communication Communication: RN at Bedside; RN Reviewed Strip (Emmy Errichiello, RN) LaborFlag: Labor (QS system process) Datetime: 09/10/2016 22:34 Patient Care IV/Blood Work: IV Started; IV Bolus Started; New IV Bag Hung (Emmy Errichiello, RN) Datetime: 09/10/2016 22:31 Patient Care IV/Blood Work: Labs Drawn (Emmy Errichiello, RN) Datetime: 09/10/2016 22:29 Vaginal Exam Dilatation (cm): 5.5 (Emmy Errichiello, RN) Effacement (%): 90 (Emmy Errichiello, RN) Station: -1 (Emmy Errichiello, RN) Datetime: 09/10/2016 22:27 NBP Sys/Nelly/Mean (mmHg): 139 (QS system process) : 80 (QS system process) : 104 (QS system process) Pulse: 107 (QS system process) LaborFlag: Labor (QS system process) Datetime: 09/10/2016 22:25 Contraction Comments: TOCO placed and explained to pt (Emmy Ellsworth RN) Comments: Pt placed on monitors and explained to pt (Emmy Ellsworth RN)
--- NOTE | 2016-09-11 04:45 | L&D Admission Assessment ---
LD ADM ASMT Datetime Report Generated by CPN: 09/11/2016 04:45 PATIENT ASSESSMENT Assessment Type: Admission Assessment (09/10/2016 22:39:Emmy Vargasleon, RN) WEIGHT Weight (lb): 196 (09/11/2016 04:25:QS system process) Weight (lb): 196 (09/10/2016 22:21:QS system process) Weight (kg): 89.1 (09/11/2016 04:25:QS system process) Weight (kg): 89.1 (09/10/2016 22:21:QS system process) Total Wt Gain (lb): 48 (09/11/2016 04:25:QS system process) Total Wt Gain (lb): 48 (09/10/2016 22:21:QS system process) Wt Gain (kg): 21.7 (09/11/2016 04:25:QS system process) Wt Gain (kg): 21.7 (09/10/2016 22:21:QS system process) BMI: 34.7 (09/11/2016 04:25:QS system process) BMI: 34.7 (09/10/2016 22:21:QS system process) PAIN Pain Scale: 0 (09/11/2016 04:13:Emmy Ellsworth RN) Pain Scale: 0 (09/11/2016 03:58:Emmy Ellsworth RN) Pain Scale: 0 (09/11/2016 03:43:Emmy Ellsworth RN) Pain Scale: 0 (09/11/2016 03:28:Emmy Ellsworth RN) Pain Scale: 0 (09/11/2016 03:13:Emmy Ellsworth RN) Pain Scale: 0 (09/11/2016 02:58:Emmy Ellsworth RN) Pain Scale: 0 (09/11/2016 02:43:Emmy Ellsworth RN) Pain Scale: 0 (09/11/2016 02:29:Emmy Ellsworth RN) Pain Scale: 0 (09/11/2016 02:14:Emmy Ellsworth RN) Pain Scale: 0 (09/11/2016 02:00:Emmy Ellsworth RN) Pain Scale: 1 (09/11/2016 00:00:Emmy Ellsworth RN) Pain Scale: 2 (09/10/2016 23:45:Emmy Ellsworth RN) Pain Scale: 4 (09/10/2016 22:39:Emmy Ellsworth RN) Pain Presence: None/Denies (09/11/2016 04:13:Emmy Ellsworth RN) Pain Presence: None/Denies (09/11/2016 03:58:Emmy Ellsworth RN) Pain Presence: None/Denies (09/11/2016 03:43:Emmy Ellsworth RN) Pain Presence: None/Denies (09/11/2016 03:28:Emmy Ellsworth RN) Pain Presence: None/Denies (09/11/2016 03:13:Emmy Ellsworth RN) Pain Presence: None/Denies (09/11/2016 02:58:Emmy Ellsworth RN) Pain Presence: None/Denies (09/11/2016 02:43:Emmy Ellsworth RN) Pain Presence: None/Denies (09/11/2016 02:29:Emmy Ellsworth RN) Pain Presence: None/Denies (09/11/2016 02:14:Emmy Ellsworth RN) Pain Presence: None/Denies (09/11/2016 02:00:Emmy Ellsworth RN) Pain Presence: Intermittent (09/11/2016 01:00:Emmy Ellsworth RN) Pain Presence: Intermittent (09/11/2016 00:30:Emmy Ellsworth RN) Pain Presence: Intermittent (09/11/2016 00:00:Emmy Ellsworth RN) Pain Presence: Intermittent (09/10/2016 23:45:Emmy Ellsworth RN) Pain Presence: Intermittent (09/10/2016 23:00:Emmy Ellsworth RN) Pain Presence: Intermittent (09/10/2016 22:39:Emmy Ellsworth RN) Pain Type: N/A (09/11/2016 04:13:Emmy Ellsworth RN) Pain Type: N/A (09/11/2016 03:58:Emmy Ellsworth RN) Pain Type: N/A (09/11/2016 03:43:Emmy Ellsworth RN) Pain Type: N/A (09/11/2016 03:28:Emmy Ellsworth RN) Pain Type: N/A (09/11/2016 03:13:Emmy Ellsworth RN) Pain Type: N/A (09/11/2016 02:58:Emmy Ellsworth RN) Pain Type: N/A (09/11/2016 02:43:Emmy Ellsworth RN) Pain Type: N/A (09/11/2016 02:29:Emmy Ellsworth RN) Pain Type: N/A (09/11/2016 02:14:Emmy Ellsworth RN) Pain Type: N/A (09/11/2016 02:00:Emmy Ellsworth RN) Pain Type: Pressure (09/11/2016 01:00:Emmy Ellsworth RN) Pain Type: Pressure (09/11/2016 00:30:Emmy Ellsworth RN) Pain Type: Pressure (09/11/2016 00:00:Emmy Ellsworth RN) Pain Type: Pressure (09/10/2016 23:45:Emmy Ellsworth RN) Pain Type: Contraction (09/10/2016 23:00:Emmy Ellsworth RN) Pain Type: Contraction (09/10/2016 22:39:Emmy Ellsworth RN) Pain Location: Abdomen (09/11/2016 01:00:Emmy Ellsworth RN) Pain Location: Abdomen (09/11/2016 00:00:Emmy Ellsworth RN) Pain Location: Abdomen (09/10/2016 23:00:Emmy Ellsworth RN) Pain Location: Abdomen (09/10/2016 22:39:Emmy Ellsworth RN) Pain Goal: 1 (09/11/2016 00:00:Emmy Ellsworth RN) Pain Goal: 1 (09/10/2016 23:45:Emmy Ellsworth RN) Pain Goal: 1 (09/10/2016 22:39:Emmy Ellsworth RN) Pain Comments: with UC's (09/10/2016 22:39:Emmy Ellsworth RN) CONTRACTIONS Frequency (min): 1-3.5 (09/11/2016 01:30:Emmy Ellsworth RN) Frequency (min): 1.5-4 (09/11/2016 01:00:Emmy Ellsworth RN) Frequency (min): 1.5-3 (09/11/2016 00:30:Emmy Ellsworth RN) Frequency (min): 3 (09/11/2016 00:15:Emmy Ellsworth RN) Frequency (min): 4-5 (09/11/2016 00:00:Emmy Ellsworth RN) Frequency (min): 3-5 (09/10/2016 23:45:Emmy Ellsworth RN) Frequency (min): 2.5-3 (09/10/2016 23:30:Emmy Ellsworth RN) Frequency (min): 2 (09/10/2016 23:00:Emmy Ellsworth RN) Frequency (min): 2-5 (09/10/2016 22:39:Emmy Ellsworth RN) Duration (sec): 50-100 (09/11/2016 01:30:Emmy Ellsworth RN) Duration (sec): 50-90 (09/11/2016 00:30:Emmy Ellsworth RN) Duration (sec): 70-110 (09/11/2016 00:15:Emmy Ellsworth RN) Duration (sec): 90-120 (09/11/2016 00:00:Emmy Ellsworth RN) Duration (sec): 40-110 (09/10/2016 23:45:Emmy Ellsworth RN) Duration (sec): 60-110 (09/10/2016 23:30:Emmy Ellsworth RN) Duration (sec): 50-90 (09/10/2016 23:00:Emmy Ellsworth RN) Duration (sec): 70-90 (09/10/2016 22:39:Emmy Ellsworth RN) Quality: Moderate (09/11/2016 01:30:Emmy Ellsworth RN) Quality: Moderate (09/11/2016 01:00:Emmy Ellsworth RN) Quality: Moderate (09/11/2016 00:30:Emmy Ellsworth RN) Quality: Moderate (09/11/2016 00:15:Emmy Ellsworth RN) Quality: Mild/Moderate (09/11/2016 00:00:Emmy Ellsworth RN) Quality: Mild/Moderate (09/10/2016 23:45:Emmy Ellsworth RN) Quality: Moderate (09/10/2016 23:30:Emmy Ellsworth RN) Quality: Moderate (09/10/2016 23:00:Emmy Ellsworth RN) Quality: Mild (09/10/2016 22:39:Emmy Ellsworth RN) Resting Tone [place]: Relaxed (09/11/2016 01:30:Emmy Ellsworth RN) Resting Tone [place]: Relaxed (09/11/2016 01:00:Emmy Ellsworth RN) Resting Tone [place]: Relaxed (09/11/2016 00:30:Emmy Ellsworth RN) Resting Tone [place]: Relaxed (09/11/2016 00:15:Emmy Ellsworth RN) Resting Tone [place]: Relaxed (09/11/2016 00:00:Emmy Ellsworth RN) Resting Tone [place]: Relaxed (09/10/2016 23:45:Emmy Ellsworth RN) Resting Tone [place]: Relaxed (09/10/2016 23:30:Emmy Ellsworth RN) Resting Tone [place]: Relaxed (09/10/2016 23:00:Emmy Ellsworth RN) Resting Tone [place]: Relaxed (09/10/2016 22:39:Emmy Ellsworth RN) Contraction Comments: TOCO placed and explained to pt (09/10/2016 22:25:Emmy Ellsworth RN) VAGINAL EXAM Dilatation (cm): 10.0 (09/11/2016 01:13:Emmy Ellsworth RN) Dilatation (cm): 9.5 (09/11/2016 01:01:Emmy Ellsworth RN) Dilatation (cm): 6.0 (09/10/2016 23:25:Emmy Ellsworth RN) Dilatation (cm): 5.5 (09/10/2016 22:29:Emmy Ellsworth RN) Effacement (%): 100 (09/11/2016 01:13:Emmy Ellsworth RN) Effacement (%): 100 (09/11/2016 01:01:Emmy Ellsworth RN) Effacement (%): 90 (09/10/2016 23:25:Emmy Ellsworth RN) Effacement (%): 90 (09/10/2016 22:29:Emmy Ellswotrh RN) Station: 1 (09/11/2016 01:13:Emmy Ellsworth RN) Station: 1 (09/11/2016 01:01:Emmy Ellsworth RN) Station: 0 (09/10/2016 23:25:Emmy Ellsworth RN) Station: -1 (09/10/2016 22:29:Emmy Ellsworth RN) Membranes Status: Intact (09/10/2016 22:39:Emmy Ellsworth RN) NEURO Level of Consciousness: Fully Conscious (09/10/2016 22:39:Emmy Ellsworth RN) Level of Consciousness: Fully Conscious (09/10/2016 22:39:Emmy Ellsworth RN) DTR's/Clonus: DTRs 2+; No Clonus (09/10/2016 22:39:Emmy Ellsworth RN) DTR's/Clonus: DTRs 2+; No Clonus (09/10/2016 22:39:Emmy Ellsworth RN) Headache: Denies (09/10/2016 22:39:Emmy Ellsworth RN) Headache: Denies (09/10/2016 22:39:Emmy Ellsworth RN) Dizziness: No (09/10/2016 22:39:Emmy Ellsworth RN) Blurred Vision: No (09/10/2016 22:39:Emmy Ellsworth RN) Extremity Numbness/Tingling : None (09/10/2016 22:39:Emmy Ellsworth RN) Extremity Movement: Full Range of Motion (09/10/2016 22:39:Emmy Ellsworth RN) CARDIOVASCULAR Nailbeds: [place] (09/10/2016 22:39:Emmy Ellsworth RN) Capillary Refill: Less than 3 Seconds (09/10/2016 22:39:Emmy Ellsworth RN) Facial Edema: None (09/10/2016 22:39:Emmy Ellsworth RN) Vanessa's Sign Left Leg: Negative (09/10/2016 22:39:Emmy Ellsworth RN) Vanessa's Sign Right Leg: Negative (09/10/2016 22:39:Emmy Ellsworth RN) RESPIRATORY Respiratory Effort: Unlabored; Regular Rhythm; Equal Expansion (09/10/2016 22:39:Emmy Ellsworth RN) Breath Sounds, Left: Clear and Equal (09/10/2016 22:39:Emmy Ellsworth RN) Breath Sounds, Left: Clear and Equal (09/10/2016 22:39:Emmy Ellsworth RN) Breath Sounds, Right: Clear and Equal (09/10/2016 22:39:Emmy Ellsworth RN) Breath Sounds, Right: Clear and Equal (09/10/2016 22:39:Emmy Ellsworth RN) Cough Productivity: None (09/10/2016 22:39:Emmy Ellsworth RN) GASTROINTESTINAL Nausea/Vomiting: Denies (09/10/2016 22:39:Emmy Ellsworth RN) Bowel Sounds: Normoactive; All Quadrants (09/10/2016 22:39:Emmy Ellsworth RN) RUQ Epigastric Pain: Denies (09/10/2016 22:39:Emmy Ellsworth RN) GENITOURINARY Bladder: Nondistended (09/10/2016 22:39:Emmy Ellsworth RN) Frequency of Urination: No (09/10/2016 22:39:Emmy Ellsworth RN) Urination Burning: No (09/10/2016 22:39:Emmy Ellsworth RN) CVA Tenderness: No (09/10/2016 22:39:Emmy Ellsworth RN) Vaginal Discharge Color: N/A (09/10/2016 22:39:Emmy Ellsworth RN) INTEGUMENTARY Skin Color: Normal for Race (09/10/2016 22:39:Emmy Ellsworth RN) Skin Temperature: Warm (09/10/2016 22:39:Emmy Ellsworth RN) Skin Moisture: Dry (09/10/2016 22:39:Emmy Ellsworth RN) CORY SKIN ASSESSMENT Cory Scale Sensory Perception: No Impairment- Responds to verbal commands. Has no sensory deficit which would limit ability to feel or voice pain or discomfort (09/10/2016 22:39:Emmy Ellsworth RN) Cory Scale Moisture: Rarely Moist- Skin is usually dry. Linen only requires changing at routine intervals (09/10/2016 22:39:Emmy Ellsworth RN) Cory Scale Activity: Walks Frequently- Walks outside the room at least twice a day and inside room at least every 2 hours during the day. (09/10/2016 22:39:Emmy Ellsworth RN) Cory Scale Mobility: No Limitations- Makes major and frequent changes in position without assistance (09/10/2016 22:39:Emmy Ellsworth RN) Cory Scale Nutrition: Excellent- Eats most of every meal. Never refuses a meal. Usually eats a total of 4 or more servings of meat and dairy products. Occasionally eats between meals. Does not require supplementation (09/10/2016 22:39:Emmy Ellsworth RN) Cory Scale Friction and Shear: No Apparent Problem- Moves in bed and in chair independently and has sufficient muscle strength to lift up completely during move. Maintains good position in bed or chair at all times (09/10/2016 22:39:Emmy Ellsworth RN) Cory Scale Total: 23 (09/10/2016 22:39:QS system process) Cory Scale Risk: No Risk of Pressure Ulcer Noted at this Time (09/10/2016 22:39:QS system process) SUPPORT Family Support: Family supportive (09/10/2016 22:39:Emmy Ellsworth RN) Emotional State: Calm/Relaxed (09/10/2016 22:39:Emmy Ellsworth RN) SAFETY Call Blunt Within Reach: Yes (09/10/2016 22:39:Emmy Ellsworth RN) Side Rails Up: Yes (09/10/2016 22:39:Emmy Ellsworth RN) Bed Wheels Locked: Yes (09/10/2016 22:39:Emmy Ellsworth RN) Arm Bands Present: Yes (09/10/2016 22:39:Emmy Ellsworth RN) FALL SCREEN Fall Risk History of Falling: (0) No (09/10/2016 22:39:Emmy Ellsworth RN) Fall Risk Secondary Diagnosis: (0) No (09/10/2016 22:39:Emmy Ellsworth RN) Fall Risk Ambulatory Aid: (0) None/Bedrest/Wheelchair/Nurse Assist (09/10/2016 22:39:Emmy Ellsworth RN) Fall Risk IV Therapy: (0) No (09/10/2016 22:39:Emmy Ellsworth RN) Fall Risk Gait: (0) Normal/Bedrest/Immobile (09/10/2016 22:39:Emmy Ellsworth RN) Fall Risk Mental Status: (0) Oriented to Own Ability (09/10/2016 22:39:Emmy Ellsworth RN) Fall Risk Score: 0 (09/10/2016 22:39:QS system process) Fall Risk Score Definition: No Risk: No action required (09/10/2016 22:39:QS system process) BABY A FHR Baseline Rate (bpm) Baby A: 130 (09/11/2016 01:30:Emmy Ellsworth RN) FHR Baseline Rate (bpm) Baby A: 130 (09/11/2016 01:00:Emmy Ellsworth RN) FHR Baseline Rate (bpm) Baby A: 130 (09/11/2016 00:30:Emmy Ellsworth RN) FHR Baseline Rate (bpm) Baby A: 130 (09/11/2016 00:15:Emmy Ellsworth RN) FHR Baseline Rate (bpm) Baby A: 130 (09/11/2016 00:00:Emmy Ellsworth RN) FHR Baseline Rate (bpm) Baby A: 120 (09/10/2016 23:45:Emmy Ellsworth RN) FHR Baseline Rate (bpm) Baby A: 125 (09/10/2016 23:30:Emmy Ellsworth RN) FHR Baseline Rate (bpm) Baby A: 125 (09/10/2016 23:00:Emmy Ellsworth RN) FHR Baseline Rate (bpm) Baby A: 130 (09/10/2016 22:39:Emmy Ellsworth RN) Variability Baby A: Moderate 6-25 bpm (09/11/2016 01:30:Emmy Ellsworth RN) Variability Baby A: Moderate 6-25 bpm (09/11/2016 01:00:Emmy Ellsworth RN) Variability Baby A: Moderate 6-25 bpm (09/11/2016 00:30:Emmy Ellsworth RN) Variability Baby A: Moderate 6-25 bpm (09/11/2016 00:15:Emmy Ellsworth RN) Variability Baby A: Moderate 6-25 bpm (09/11/2016 00:00:Emmy Ellsworth RN) Variability Baby A: Moderate 6-25 bpm (09/10/2016 23:45:Emmy Ellsworth RN) Variability Baby A: Moderate 6-25 bpm (09/10/2016 23:30:Emmy Ellsworth RN) Variability Baby A: Moderate 6-25 bpm (09/10/2016 23:00:Emmy Ellsworth RN) Variability Baby A: Moderate 6-25 bpm (09/10/2016 22:39:Emmy Ellsworth RN) Accelerations Baby A: 15X15 (09/11/2016 01:30:Emmy Ellsworth RN) Accelerations Baby A: 15X15 (09/11/2016 01:00:Emmy Ellsworth RN) Accelerations Baby A: 15X15 (09/11/2016 00:30:Emmy Ellsworth RN) Accelerations Baby A: 15X15 (09/11/2016 00:15:Emmy Ellsworth RN) Accelerations Baby A: 15X15 (09/11/2016 00:00:Emmy Ellsworth RN) Accelerations Baby A: 15X15 (09/10/2016 23:45:Emmy Ellsworth RN) Accelerations Baby A: 15X15 (09/10/2016 23:30:Emmy Ellsworth RN) Accelerations Baby A: 10X10 (09/10/2016 23:00:Emmy Ellsworth RN) Accelerations Baby A: 15X15 (09/10/2016 22:39:Emmy Ellsworth RN) Decelerations Baby A: None (09/11/2016 01:30:Emmy Ellsworth RN) Decelerations Baby A: None (09/11/2016 01:00:Emmy Ellsworth RN) Decelerations Baby A: None (09/11/2016 00:30:Emmy Ellsworth RN) Decelerations Baby A: None (09/11/2016 00:15:Emmy Ellsworth RN) Decelerations Baby A: None (09/11/2016 00:00:Emmy Ellsworth RN) Decelerations Baby A: None (09/10/2016 23:45:Emmy Ellsworth RN) Decelerations Baby A: None (09/10/2016 23:30:Emmy Ellsworth RN) Decelerations Baby A: None (09/10/2016 23:00:Emmy Ellsworth RN) Decelerations Baby A: None (09/10/2016 22:39:Emmy Ellsworth RN) ADDITIONAL COMMENTS Assessment Flag: Admission Assessment (09/10/2016 22:39:QS system process)
--- NOTE | 2016-09-11 04:45 | L&D Current Admission ---
Current Admit Datetime Report Generated by CPN: 09/11/2016 04:45 ADMISSION INFORMATION Reason for Admission: Onset of Labor (09/10/2016 22:37:Emmy Ellsworth RN) Chief Complaint: Suspected Rupture of Membranes (08/29/2016 16:01:Lisa Gonzalez RN) Method of Arrival: Wheelchair (09/10/2016 22:37:Emmy Ellsworth RN) Reason for Induction: Not Applicable (09/10/2016 22:37:Emmy Ellsworth RN) Records Available: Yes (09/10/2016 22:37:Emmy Ellsworth RN) General Admission Information: Reviewed (09/10/2016 22:37:Emmy Ellsworth RN) BELONGINGS/ADVANCED DIRECTIVES Valuables/Personal Effects: Purse/Wallet; Cell Phone; Jewelry (09/10/2016 22:37:Emmy Ellsworth RN) Disposition of Belongings: Kept with Patient (09/10/2016 22:37:Emmy Ellsworth RN) Advance Direct for Healthcare: No, and Wants No Information (09/10/2016 22:37:Emmy Ellsworth RN) Durable Power of Ribbon [place]: No (09/10/2016 22:37:Emmy Ellsworth RN) Living Will: No (09/10/2016 22:37:Emmy Ellsworth RN) Organ Donor: Yes (09/10/2016 22:37:Emmy Ellsworth RN) Pt Rights Information Given: Yes (09/10/2016 22:37:Emmy Ellsworth RN) Pt Understands Pt Rights: Yes (09/10/2016 22:37:mEmy Ellsworth RN) LEARNING ASSESSMENT Knowledge Level: Understands L_D Process; Understands Care Activities; Had Pre-Hospital Education; Understands Diagnosis (09/10/2016 22:37:Emmy Ellsworth RN) Barriers to Learning: None (09/10/2016 22:37:Emmy Ellsworth RN) Learning Readiness: Motivated (09/10/2016 22:37:Emmy Ellsworth RN) DOMESTIC VIOLANCE SCREENING Dom Viol Threatened/Hurt: No (09/10/2016 22:37:Emmy Ellsworth RN) Hx of Abuse/Neglect past 2yrs: No (09/10/2016 22:37:Emmy Ellsworth RN) Feel Unsafe Going Home: No (09/10/2016 22:37:Emmy Ellsworth RN) Addt'l Observ Indicating Abuse: No (09/10/2016 22:37:Emmy Ellsworth RN) Reason Unable to Complete Screen: N/A, Screen Completed (09/10/2016 22:37:Emmy Ellsworth RN) Considered Personal Harm/Suicide: No (09/10/2016 22:37:Emmy Ellsworth RN) NUTRITIONAL/FUNCTIONAL SCREENING Problem with Appetite >5 Days: No (09/10/2016 22:37:Emmy Ellsworth RN) Chew/Swallow Difficulties: No (09/10/2016 22:37:Emmy Ellsworth RN) Inappropriate Wt Gain/Loss: No (09/10/2016 22:37:Emmy Ellsworth RN) Presence Skin Breakdown/Ulcer: No (09/10/2016 22:37:Emmy Ellsworth RN) Special Diet: No (09/10/2016 22:37:Emmy Ellsworth RN) Pt Requests Thread Twister Visit: No (09/10/2016 22:37:Emmy Ellsworth RN) Hx of Any of the Following?: N/A (09/10/2016 22:37:Emmy Ellsworth RN) New Diagnosis of: N/A (09/10/2016 22:37:Emmy Ellsworth RN) Requires Assist w/Ambulation: No (09/10/2016 22:37:Emmy Ellsworth RN) Uses Assist Device to Ambulate: No (09/10/2016 22:37:Emmy Ellsworth RN) Pt Requires Help w/ADL's: No (09/10/2016 22:37:Emmy Ellsworth RN)
[2016-09-11] MEDS: IBUPROFEN 800 MG TABLET PO SCH ×3 (05:25→21:20)
--- NOTE | 2016-09-11 06:15 | L&D Current Admission ---
Current Admit Datetime Report Generated by CPN: 09/11/2016 06:00 ADMISSION INFORMATION Reason for Admission: Onset of Labor (09/10/2016 22:37:Emmy Ellsworth RN) Chief Complaint: Suspected Rupture of Membranes (08/29/2016 16:01:Lisa Gonzalez RN) Method of Arrival: Wheelchair (09/10/2016 22:37:Emmy Ellsworth RN) Reason for Induction: Not Applicable (09/10/2016 22:37:Emmy Ellsworth RN) Records Available: Yes (09/10/2016 22:37:Emmy Ellsworth RN) General Admission Information: Reviewed (09/10/2016 22:37:Emmy Ellsworth RN) BELONGINGS/ADVANCED DIRECTIVES Valuables/Personal Effects: Purse/Wallet; Cell Phone; Jewelry (09/10/2016 22:37:Emmy Ellsworth RN) Disposition of Belongings: Kept with Patient (09/10/2016 22:37:Emmy Ellsworth RN) Advance Direct for Healthcare: No, and Wants No Information (09/10/2016 22:37:Emmy Ellsworth RN) Durable Power of Window Air Conditioner Installer: No (09/10/2016 22:37:Emmy Ellsworth RN) Living Will: No (09/10/2016 22:37:Emmy Ellsworth RN) Organ Donor: Yes (09/10/2016 22:37:Emmy Ellsworth RN) Pt Rights Information Given: Yes (09/10/2016 22:37:Emmy Ellsworth RN) Pt Understands Pt Rights: Yes (09/10/2016 22:37:Emmy Ellsworth RN) LEARNING ASSESSMENT Knowledge Level: Understands L_D Process; Understands Care Activities; Had Pre-Hospital Education; Understands Diagnosis (09/10/2016 22:37:Emmy Ellsworth RN) Barriers to Learning: None (09/10/2016 22:37:Emmy Ellsworth RN) Learning Readiness: Motivated (09/10/2016 22:37:Emmy Ellsworth RN) DOMESTIC VIOLANCE SCREENING Dom Viol Threatened/Hurt: No (09/10/2016 22:37:Emmy Ellsworth RN) Hx of Abuse/Neglect past 2yrs: No (09/10/2016 22:37:Emmy Ellsworth RN) Feel Unsafe Going Home: No (09/10/2016 22:37:Emmy Ellsworth RN) Addt'l Observ Indicating Abuse: No (09/10/2016 22:37:Emmy Ellsworth RN) Reason Unable to Complete Screen: N/A, Screen Completed (09/10/2016 22:37:Emmy Ellsworth RN) Considered Personal Harm/Suicide: No (09/10/2016 22:37:Emmy Ellsworth RN) NUTRITIONAL/FUNCTIONAL SCREENING Problem with Appetite >5 Days: No (09/10/2016 22:37:Emmy Ellsworth RN) Chew/Swallow Difficulties: No (09/10/2016 22:37:Emmy Ellsworth RN) Inappropriate Wt Gain/Loss: No (09/10/2016 22:37:Emmy Ellsworth RN) Presence Skin Breakdown/Ulcer: No (09/10/2016 22:37:Emmy Ellsworth RN) Special Diet: No (09/10/2016 22:37:Emmy Ellsworth RN) Pt Requests Decision Unit Rn Visit: No (09/10/2016 22:37:Emmy Ellsworth RN) Hx of Any of the Following?: N/A (09/10/2016 22:37:Emmy Ellsworth RN) New Diagnosis of: N/A (09/10/2016 22:37:Emmy Ellsworth RN) Requires Assist w/Ambulation: No (09/10/2016 22:37:Emmy Ellsworth RN) Uses Assist Device to Ambulate: No (09/10/2016 22:37:Emmy Ellsworth RN) Pt Requires Help w/ADL's: No (09/10/2016 22:37:Emmy Ellsworth RN)
--- NOTE | 2016-09-11 06:15 | L&D General Admission ---
General Admit Datetime Report Generated by CPN: 09/11/2016 06:00 INFORMATION Patient Age: 25 (01/03/2016 20:08:QS system process) EDC: 09/03/2016 00:00 (08/29/2016 16:09:Lisa Gonzalez RN) : 3 (08/29/2016 16:09:Lisa Gonzalez RN) Para: 1 (09/03/2016 11:21:Christel Roach RN) Term: 1 (08/29/2016 16:09:Christel Roach RN) : 0 (08/29/2016 16:09:Christel Roach RN) Spontaneous Abortions: 0 (08/29/2016 16:09:Christel Roach RN) Induced Abortions: 0 (08/29/2016 16:09:Christel Roach RN) Livin (08/29/2016 16:09:Lisa Gonzalez RN) Cesareans: 0 (08/29/2016 16:09:Christel Roach RN) VBACs: 0 (08/29/2016 16:09:Christel Roach RN) Ectopic: 0 (08/29/2016 16:09:Christel Roach RN) Multiple Births: 0 (08/29/2016 16:09:Christel Roach RN) Baby, Number in Womb: 1 (09/03/2016 11:21:ANGY Draper) CARE Primary Paper Maker: [email or web address] (08/29/2016 16:09:Lisa Gonzalez RN) Adequate Care: Yes (08/29/2016 16:09:Christel Roach RN) Prepregnancy Weight (lb): 148 (08/29/2016 16:09:Lisa Gonzalez RN) Prepregnancy Weight (kg): 67.3 (08/29/2016 16:09:QS system process) Height (in): 63 (09/11/2016 04:25:QS system process) ALLERGIES Medication Allergy: Yes (08/29/2016 16:09:Lisa Gonzalez RN) Medication Allergies: Penicillins/MO/Hives (09/10/2016) (09/10/2016 22:21:QS system process) Latex Allergy: No Latex Allergies (08/29/2016 16:09:Lisa Gonzalez RN) Food Allergies: none (08/29/2016 16:09:April Shea RN) Environmental Allergies: none (08/29/2016 16:09:April Shea RN) COMMUNICATION Primary Language: Armenian (08/29/2016 16:09:Lisa Gonzalez RN) Medical Tx Preferred Language: Armenian (08/29/2016 16:09:Christel Roach RN) Communication Barrier(s): None (08/29/2016 16:09:Christel Roach RN) DEMOGRAPHICS Address: [address] [place] [id number] (01/03/2016 20:08:QS system process) Zipcode: [phone] (01/03/2016 20:08:QS system process) Home (01/03/2016 20:08:QS system process) Work (01/03/2016 20:08:QS system process) SSN: [id number] (01/03/2016 20:08:QS system process) Next of Kin Name: ELIEZER JC (01/03/2016 20:08:QS system process) Next of Kin (01/03/2016 20:08:QS system process) Next of Kin Relationship: SPO (01/03/2016 20:08:QS system process) Date of : 1990 (01/03/2016 20:08:QS system process) Marital Status: (01/03/2016 20:08:QS system process) Sex: Female (01/03/2016 20:08:QS system process) Race: (01/03/2016 20:08:QS system process) Ethnicity: Non- or (01/03/2016 20:08:QS system process) Confucianist: Other (01/03/2016 20:08:QS system process) DRUG AND ALCOHOL USE Alcohol: No (08/29/2016 16:09:Emmy Ellsworth RN) Cigarettes: Never Smoker. [id number] (08/29/2016 16:09:Emmy Ellsworth RN) Marijuana: No (08/29/2016 16:09:Emmy Ellsworth RN) Cocaine: No (08/29/2016 16:09:Emmy Ellsworth RN) Other Illicit Drugs: No (08/29/2016 16:09:Emmy Ellsworth RN) VACCINE HISTORY Influenza Vaccine: Yes (08/29/2016 16:09:Lisa Gonzalez RN) Influenza Date: 06/25/16 (08/29/2016 16:09:Lisa Gonzalez RN) Pneumococcal Vaccine: No (08/29/2016 16:09:April Shea RN) Tetanus Vaccine: Yes (08/29/2016 16:09:Lisa Gonzalez RN) Tetanus Date: 08/23/2013 (08/29/2016 16:09:Lisa Gonzalez RN) Tdap Vaccine: Yes (08/29/2016 16:09:Lisa Gonzalez RN) Tdap Date: 08/23/2013 (08/29/2016 16:09:Lisa Gonzalez RN) Hepatitis B Vaccine: Yes (08/29/2016 16:09:April Shea RN) Woodworking Machine Feeder: [facility] (08/29/2016 16:09:Emmy Ellsworth RN) Feeding Preference: Breast (08/29/2016 16:09:Emmy Ellsworth RN) Benefit of Breast Feed Discussed: Yes (08/29/2016 16:09:Emmy Ellsworth RN) Circumcision: N/A (08/29/2016 16:09:Emmy Ellsworth RN) Classes Attended: No (08/29/2016 16:09:Emmy Ellsworth RN) Tubal Ligation: No (08/29/2016 16:09:Emmy Ellsworth RN) Tubal Authorization Signed: N/A (08/29/2016 16:09:Emmy Ellsworth RN) Consent: N/A (08/29/2016 16:09:Emmy Ellsworth RN) Consent Signed: N/A (08/29/2016 16:09:Emmy Ellsworth RN) Pain Management Plans: Epidural (08/29/2016 16:09:Emmy Ellsworth RN) Plans for Labor and Delivery: Other, Specify (08/29/2016 16:09:Emmy Ellsworth RN) Other Labor and Delivery Plans: delayed cord clamping, guide baby out (08/29/2016 16:09:Emmy Ellsworth RN) Support Person: Eliezer Jc (08/29/2016 16:09:Emmy Ellsworth RN) Support Person Relationship: (08/29/2016 16:09:Emmy Ellsworth RN) Cultural/Spritual Practice: No (08/29/2016 16:09:Emmy Ellsworth RN) Spir/Cult Dietary Needs: No (08/29/2016 16:09:Emmy Ellsworth RN) LIVING SITUATION/DISCHARGE PLAN Living Arrangements: House (08/29/2016 16:09:Emmy Ellsworth RN) Adequate Access to:: Electric; Heat; Refrigeration; Plumbing/Running water; Phone; Transportation (08/29/2016 16:09:Emmy Ellsworth RN) WIC Program: Yes (08/29/2016 16:09:Emmy Ellsworth RN) Discharge Dental Service Technician Person: Eliezer Jc (08/29/2016 16:09:Emmy Ellsworth RN) Person to Help after Discharge: yes (08/29/2016 16:09:Emmy Ellsworth RN) Currently Using Commun Resources: Yes (08/29/2016 16:09:Emmy Ellsworth RN) Specify Current Resource Used: Medicaid (08/29/2016 16:09:Emmy Ellsworth RN) Car Seat for Discharge: Yes (08/29/2016 16:09:Emmy Ellsworth RN) Adoption Requested: No (Annotations: Data stored by CPN on behalf of user) (08/29/2016 16:09:Emmy Ellsworth RN) LABS Blood Type: O Negative (08/29/2016 16:09:Lisa Gonzalez RN) Antibody Screen: negative (08/29/2016 16:09:Emmy Ellsworth RN) Hemoglobin: 11.9 L (09/10/2016 22:39:QS system process) Hematocrit: 34.9 L (09/10/2016 22:39:QS system process) MCV: 91 (09/10/2016 22:39:QS system process) Group Beta Strep: negative (08/29/2016 16:09:Emmy Ellsworth RN) Gonorrhea: Negative (08/29/2016 16:09:Lisa Gonzalez RN) Chlamydia: Negative (08/29/2016 16:09:Lisa Gonzalez RN) RPR/VDRL: Nonreactive (08/29/2016 16:09:Emmy Ellsworth RN) Hepatitis B: Negative (08/29/2016 16:09:Lisa Gonzalez RN) Rubella: Immune (08/29/2016 16:09:Lisa Gonzalez RN) OB/PREVIOUS HISTORY Current Procedures: Ultrasound; NST (08/29/2016 16:09:April Shea RN) Comments Obstetrical History: G1: SAB G2:10/03/13 39.2 weeks G3: current (08/29/2016 16:09:Lisa Gonzalez RN)
[2016-09-11] MEDS: SENNOSIDES/DOCUSATE 8.6-50 MG 1 EACH TABLET PO SCH (09:02)
[2016-09-11] MEDS: FAMOTIDINE 20 MG TABLET PO SCH ×2 (09:02→21:21)
[2016-09-11] MEDS: PRENATAL VITAMIN W-O CA NO5/FE FUMARATE/FA CAPSULE PO SCH (09:02)
[2016-09-11] MEDS: DOCUSATE SODIUM 100 MG CAPSULE PO SCH ×2 (09:02→17:31)
[2016-09-11] MEDS: FERROUS SULFATE 325 MG TABLET PO SCH ×2 (09:02→17:31)
--- NOTE | 2016-09-11 15:22 | PDOC PROGRESS REPORT ---
Subjective-OB Subjective: Post Delivery Day:1 25 year old s/p . Requesting lidocaine spray or anything that can alliviate vaginal/clitoral discomfort. No other concerns at this time. Physical Exam (OB) Vital Signs: Temp Pulse Resp BP Pulse Ox 98.1 F 87 16 115/66 99 09/11/16 09:10 09/11/16 09:10 09/11/16 04:39 09/11/16 09:10 09/11/16 09:10 Intake & Output 09/10/16 09/11/16 09/12/16 06:59 06:59 06:59 Weight 88.95 kg - General General Appearance: Appears well In distress: None - Episiotomy/Laceration Site Condition: Well Approximated, Ecchymosis, Edematous - Lochia Lochia Amount: Scant < 10 ml Lochia Color: Rubra/Red - Abdomen Description: Soft Hernia Present: No Fundal Description: Firm, Midline Fundal Height: u/u - u/2 - Respiratory Respiratory Status: No respiratory distress - Neurological Cognition: Normal Orientation: AAOx4 - Psychological Associated symptoms: Normal affect, Normal mood Objective-Diagnostic Laboratory: 09/10/16 22:39 09/10/16 09/10/16 09/10/16 20:20 22:39 22:39 WBC 14.1 H RBC 3.83 Hgb 11.9 L Hct 34.9 L MCV 91 MCH 31.0 MCHC 34.0 RDW 13.9 Plt Count 202 Seg Neutrophils % 79.1 H Lymphocytes % 13.9 Monocytes % 6.4 Eosinophils % 0.2 Basophils % 0.4 Absolute Neutrophils 11.2 H Absolute Lymphocytes 2.0 Absolute Monocytes 0.9 Absolute Eosinophils 0.0 Absolute Basophils 0.1 Urine Color YELLOW Urine Appearance CLOUDY Urine pH 7.0 Ur Specific [place] 1.009 Urine Protein NEGATIVE Urine Glucose (UA) NEGATIVE Urine Ketones NEGATIVE Urine Blood NEGATIVE Urine Nitrite NEGATIVE Ur Leukocyte Esterase MODERATE H Blood Type O NEGATIVE Antibody Screen NEGATIVE Assessment and Plan(PN) - Assessment and Plan (1) Vaginal delivery Is this a current diagnosis for this admission?: YesPlan: continue stay - Time Spent with Patient Time with patient: 15-25 minutes Medications reviewed and adjusted accordingly: Yes - Disposition Anticipated Discharge: Home Within: within 24 hours
[2016-09-12] MEDS: IBUPROFEN 800 MG TABLET PO SCH ×2 (05:06→13:08)
--- NOTE | 2016-09-12 06:02 | L&D General Admission ---
General Admit Datetime Report Generated by CPN: 09/12/2016 06:00 INFORMATION Patient Age: 25 (01/03/2016 20:08:QS system process) EDC: 09/03/2016 00:00 (08/29/2016 16:09:Lisa Gonzalez RN) : 3 (08/29/2016 16:09:Lisa Gonzalez RN) Para: 1 (09/03/2016 11:21:Christel Roach RN) Term: 1 (08/29/2016 16:09:Christel Roach RN) : 0 (08/29/2016 16:09:Christel Roach RN) Spontaneous Abortions: 0 (08/29/2016 16:09:Christel Roach RN) Induced Abortions: 0 (08/29/2016 16:09:Christel Roach RN) Livin (08/29/2016 16:09:Lisa Gonzalez RN) Cesareans: 0 (08/29/2016 16:09:Christel Roach RN) VBACs: 0 (08/29/2016 16:09:Christel Roach RN) Ectopic: 0 (08/29/2016 16:09:Christel Roach RN) Multiple Births: 0 (08/29/2016 16:09:Christel Roach RN) Baby, Number in Womb: 1 (09/03/2016 11:21:ANGY Draper) CARE Primary Ironing Pleater: [facility] (08/29/2016 16:09:Lisa Gonzalez RN) Adequate Care: Yes (08/29/2016 16:09:Christel Roach RN) Prepregnancy Weight (lb): 148 (08/29/2016 16:09:Lisa Gonzalez RN) Prepregnancy Weight (kg): 67.3 (08/29/2016 16:09:QS system process) Height (in): 63 (09/11/2016 10:22:QS system process) ALLERGIES Medication Allergy: Yes (08/29/2016 16:09:Lisa Gonzalez RN) Medication Allergies: Penicillins/MO/Hives (09/10/2016) (09/10/2016 22:21:QS system process) Latex Allergy: No Latex Allergies (08/29/2016 16:09:Lisa Gonzalez RN) Food Allergies: none (08/29/2016 16:09:April Shea RN) Environmental Allergies: none (08/29/2016 16:09:April Shea RN) COMMUNICATION Primary Language: Romansh (08/29/2016 16:09:Lisa Gonzalez RN) Medical Tx Preferred Language: Romansh (08/29/2016 16:09:Christel Roach RN) Communication Barrier(s): None (08/29/2016 16:09:Christel Roach RN) DEMOGRAPHICS Address: [address] [place] [id number] (01/03/2016 20:08:QS system process) Zipcode: [phone] (01/03/2016 20:08:QS system process) Home (01/03/2016 20:08:QS system process) Work (01/03/2016 20:08:QS system process) SSN: [id number] (01/03/2016 20:08:QS system process) Next of Kin Name: ELIEZER JC (01/03/2016 20:08:QS system process) Next of Kin (01/03/2016 20:08:QS system process) Next of Kin Relationship: SPO (01/03/2016 20:08:QS system process) Date of : 1990 (01/03/2016 20:08:QS system process) Marital Status: (01/03/2016 20:08:QS system process) Sex: Female (01/03/2016 20:08:QS system process) Race: (01/03/2016 20:08:QS system process) Ethnicity: Non- or (01/03/2016 20:08:QS system process) Latter Day: Other (01/03/2016 20:08:QS system process) DRUG AND ALCOHOL USE Alcohol: No (08/29/2016 16:09:Emmy Ellsworth RN) Cigarettes: Never Smoker. [id number] (08/29/2016 16:09:Emmy Ellsworth RN) Marijuana: No (08/29/2016 16:09:Emmy Ellsworth RN) Cocaine: No (08/29/2016 16:09:Emmy Ellsworth RN) Other Illicit Drugs: No (08/29/2016 16:09:Emmy Ellsworth RN) VACCINE HISTORY Influenza Vaccine: Yes (08/29/2016 16:09:Lisa Gonzalez RN) Influenza Date: 06/25/16 (08/29/2016 16:09:Lisa Gonzalez RN) Pneumococcal Vaccine: No (08/29/2016 16:09:April Shea RN) Tetanus Vaccine: Yes (08/29/2016 16:09:Lisa Gonzalez RN) Tetanus Date: 08/23/2013 (08/29/2016 16:09:Lisa Gonzalez RN) Tdap Vaccine: Yes (08/29/2016 16:09:Lisa Gonzalez RN) Tdap Date: 08/23/2013 (08/29/2016 16:09:Lisa Gonzalez RN) Hepatitis B Vaccine: Yes (08/29/2016 16:09:April Shea RN) Hypercil Core Transformer Assembler: [facility] (08/29/2016 16:09:Emmy Ellsworth RN) Feeding Preference: Breast (08/29/2016 16:09:Emmy Ellsworth RN) Benefit of Breast Feed Discussed: Yes (08/29/2016 16:09:Emmy Ellsworth RN) Circumcision: N/A (08/29/2016 16:09:Emmy Ellsworth RN) Classes Attended: No (08/29/2016 16:09:Emmy Ellsworth RN) Tubal Ligation: No (08/29/2016 16:09:Emmy Ellsworth RN) Tubal Authorization Signed: N/A (08/29/2016 16:09:Emmy Ellsworth RN) Consent: N/A (08/29/2016 16:09:Emmy Ellsworth RN) Consent Signed: N/A (08/29/2016 16:09:Emmy Ellsworth RN) Pain Management Plans: Epidural (08/29/2016 16:09:Emmy Ellsworth RN) Plans for Labor and Delivery: Other, Specify (08/29/2016 16:09:Emmy Ellsworth RN) Other Labor and Delivery Plans: delayed cord clamping, guide baby out (08/29/2016 16:09:Emmy Ellsworth RN) Support Person: Eliezer Jc (08/29/2016 16:09:Emmy Ellsworth RN) Support Person Relationship: (08/29/2016 16:09:Emmy Ellsworth RN) Cultural/Spritual Practice: No (08/29/2016 16:09:Emmy Ellsworth RN) Spir/Cult Dietary Needs: No (08/29/2016 16:09:Emmy Ellsworth RN) LIVING SITUATION/DISCHARGE PLAN Living Arrangements: House (08/29/2016 16:09:Emmy Ellsworth RN) Adequate Access to:: Electric; Heat; Refrigeration; Plumbing/Running water; Phone; Transportation (08/29/2016 16:09:Emmy Ellsworth RN) WIC Program: Yes (08/29/2016 16:09:Emmy Ellsworth RN) Discharge [place] Upholsterer Person: Eliezer Jc (08/29/2016 16:09:Emmy Ellsworth RN) Person to Help after Discharge: yes (08/29/2016 16:09:Emmy Ellsworth RN) Currently Using Commun Resources: Yes (08/29/2016 16:09:Emmy Ellsworth RN) Specify Current Resource Used: Medicaid (08/29/2016 16:09:Emmy Ellsworth RN) Car Seat for Discharge: Yes (08/29/2016 16:09:Emmy Ellsworth RN) Adoption Requested: No (Annotations: Data stored by CPN on behalf of user) (08/29/2016 16:09:Emmy Ellsworth RN) LABS Blood Type: O Negative (08/29/2016 16:09:Lisa Gonzalez RN) Antibody Screen: negative (08/29/2016 16:09:Emmy Ellsworth RN) Hemoglobin: 11.9 L (09/10/2016 22:39:QS system process) Hematocrit: 34.9 L (09/10/2016 22:39:QS system process) MCV: 91 (09/10/2016 22:39:QS system process) Group Beta Strep: negative (08/29/2016 16:09:Emmy Ellsworth RN) Gonorrhea: Negative (08/29/2016 16:09:Lisa Gonzalez RN) Chlamydia: Negative (08/29/2016 16:09:Lisa Gonzalez RN) RPR/VDRL: Nonreactive (08/29/2016 16:09:Emmy Ellsworth RN) Hepatitis B: Negative (08/29/2016 16:09:Lisa Gonzalez RN) Rubella: Immune (08/29/2016 16:09:Lisa Gonzalez RN) OB/PREVIOUS HISTORY Current Procedures: Ultrasound; NST (08/29/2016 16:09:April Shea RN) Comments Obstetrical History: G1: SAB G2:10/03/13 39.2 weeks G3: current (08/29/2016 16:09:Lisa Gonzalez RN)
--- NOTE | 2016-09-12 06:23 | L&D Care Plan ---
LD CARE PLANS Datetime Report Generated by CPN: 09/12/2016 06:15 Datetime: 09/10/2016 22:31 Pain State: Actual (Tayler Orr RN) Related To: Labor and Delivery Process (Tayler Orr RN) Goal(s): Patients Pain will be Assessed and Managed; Patient will Verbalize Adequate Relief of Pain or the Ability to [place] with Current Pain (Tayler Orr RN) Interventions: Assess Pain Severity on Scale of 0 (None) to 5 (Severe); Assess Type, Location and Intensity of Pain Each Time Client Reports Discomfort and Notify Provider if Unusal Pain Develops; Encourage Proper Breathing and Relaxation Techniques; Offer Alternatives Such as Repositioning, Calm Environment, Massages, Diversional Activities, Ice Pack, Splinting, and Ambulation; Administer Analgesics as Ordered; Assist with Epidural Placement as Appropriate; Evaluate Therapeutic Effectiveness of Medication and Treatments (Tayler Orr RN) Outcome: Patient will Report Absence or Relief of Pain Consistent with Established Pain Goal (Tayler Orr RN) Status: Ongoing (Tayler Orr RN) Outcome: Patient will have a Decrease in Signs and Symptoms of Discomfort (Tayler Orr RN) Status: Ongoing (Tayler Orr RN) Outcome: Pain will be Controlled During Procedures (Tayler Orr RN) Status: Ongoing (Tayler Orr RN) Anxiety State: Risk For (Tayler Orr RN) Related To: Labor and Delivery Process; Medical Interventions; Significant Life Event (Tayler Orr RN) Goal(s): Patient will have Decreased Anxiety and be able to Function at Acceptable Levels (Tayler Orr RN) Interventions: Assess Verbal and Nonverbal Behavioral Indicators of Anxiety; Assist Patient to Identify and Verbalize Symptoms of Anxiety; Identify and Demonstrate Techniques to Control Anxiety; Assist Patient with Coping Mechanisms to Manage Anxiety; Provide Theraputic Touch for the Patient; Explain to Patient, Using a Calm Reassuring Approach and Nonmedical Terms, All Activities, Procedures, and Concerns; Instruct Patient and Family about Post Discharge Care, Limitations, Symptoms to Report and Resources Available (Tayler Orr RN) Outcome: Patient will Identify, Verbalize and Demonstrate Techniques to Control Anxiety (Tayler Orr RN) Status: Ongoing (Tayler Orr RN) Outcome: Patient's Posture, Facial Expressions, Gestures and Activity Level will Reflect Decreased Anxiety (Tayler Orr RN) Status: Ongoing (Tayler Orr RN) Outcome: Patient will Verbalize a Sense of Control and/or Acceptance of the Situation (Tayler Orr RN) Status: Ongoing (Tyaler Orr RN) Outcome: Patient will Identify and Utilize Support Person (Tayler Orr RN) Status: Ongoing (Tayler Orr RN) Knowledge Deficit State: Not Applicable (Tayler Orr RN) Infection State: Risk For (Tayler Orr RN) Related To: Invasive Procedures; Altered Tissue Integrity (Tayler Orr RN) Goal(s): The Patient will be Free of Infection, Vital Signs Stable and Lab Work within Normal Parameters (Tayler Orr RN) Interventions: Instruct and Reinforce Proper Handwashing, Hygiene, and Care Techniques to Patient and Family; Monitor Vital Signs; Monitor Patient for the Following Signs of Infection: Fever, Abdominal Tenderness, Unusual Discharge; Monitor Aminiotic Fluid, Urine and Lochia for Color and Odor; Observe Wounds, Incisions and Invasive Line Sites for Redness, Drainage and Edema; Assess IV Sites per Hospital Policy; Monitor Lab and Test Results and Notify Provider of Abnormal Findings; Assess Nutritional Status and Promote Good Nutrition (Tayler Orr RN) Outcome: Patient will Remain Free of Infection (Tayler Orr RN) Status: Ongoing (Tayler Orr RN) Outcome: Infection will be Recognized Early to Allow for Prompt Treatment (Tayler Orr RN) Status: Ongoing (Tayler Orr RN) Outcome: Patient will have Vital Signs Within Expected Range (Tayler Orr RN) Status: Ongoing (Tayler Orr RN) Fluid Volume State: Not Applicable (Tayler Orr, ) Injury State: Not Applicable (Tayler Orr, RN) Impaired Skin Integrity State: Risk For (Tayler Orr RN) Related To: Vaginal Delivery (Tayler Orr RN) Goal(s): Patient will Maintain Optimal Skin Integrity, Free of Breakdown, Injury or Infection (Tayler Orr, JASSON) Interventions: Complete Screening for Pressure Ulcer Risk and Initiate Protocol per Hospital Policy; Monitor Site of Skin Impairment for Color Changes, Redness, Swelling, Warmth, Pain or Other Signs of Infection; Encourage and Assist with Position Changes; Monitor Patient's Mobility Status; Provide Adequate Nutrition and Fluids; Teach Patient Appropriate Hygienic Care; Teach Patient/Family Skin Care Management (Tayler Orr RN) Outcome: Patient will not have Evidence of Injury Such as Skin Breakdown, Scrapes, Cuts, or Bruising (Tayler Orr, JASSON) Status: Ongoing (Tayler Orr RN) Outcome: Patient will Report Any Altered Sensation or Pain at Site of Skin Impairment (Tayler Orr, RN) Status: Ongoing (Tayler Orr, RN) Outcome: Patients Incisions and Wounds will be without Signs or Symptoms of Infection (Tayler Orr, RN) Status: Ongoing (Tayler Orr, RN) Outcome: Patient will Demonstrate Understanding of Plan to Heal Skin and Prevent Reinjury and Verbalize Risk Factors (Tayler Orr RN) Status: Ongoing (Tayler Orr, RN) Parenting Impaired State: Not Applicable (Tayler Vitrano, RN) Nutrition State: Not Applicable (Tayler Vitrano, RN) Grieving State: Not Applicable (Tayler Vitrano, RN) Additional Care Plan State: Not Applicable (Tayler Vitrano, RN) Datetime: 09/10/2016 22:30 Pain State: Actual (Tayler Orr RN) Related To: Labor and Delivery Process (Tayler Orr RN) Goal(s): Patients Pain will be Assessed and Managed; Patient will Verbalize Adequate Relief of Pain or the Ability to [place] with Current Pain (Tayler Orr RN) Interventions: Assess Pain Severity on Scale of 0 (None) to 5 (Severe); Assess Type, Location and Intensity of Pain Each Time Client Reports Discomfort and Notify Provider if Unusal Pain Develops; Encourage Proper Breathing and Relaxation Techniques; Offer Alternatives Such as Repositioning, Calm Environment, Massages, Diversional Activities, Ice Pack, Splinting, and Ambulation; Administer Analgesics as Ordered; Assist with Epidural Placement as Appropriate; Evaluate Therapeutic Effectiveness of Medication and Treatments (Tayler Orr RN) Outcome: Patient will Report Absence or Relief of Pain Consistent with Established Pain Goal (Tayler Orr RN) Status: Ongoing (Tayler Orr RN) Outcome: Patient will have a Decrease in Signs and Symptoms of Discomfort (Tayler Orr RN) Status: Ongoing (Tayler Orr RN) Outcome: Pain will be Controlled During Procedures (Tayler Orr RN) Status: Ongoing (Tayler Orr RN) Anxiety State: Risk For (Tayler Orr RN) Related To: Labor and Delivery Process; Medical Interventions; Significant Life Event (Tayler Orr RN) Goal(s): Patient will have Decreased Anxiety and be able to Function at Acceptable Levels (Tayler Orr RN) Interventions: Assess Verbal and Nonverbal Behavioral Indicators of Anxiety; Assist Patient to Identify and Verbalize Symptoms of Anxiety; Identify and Demonstrate Techniques to Control Anxiety; Assist Patient with Coping Mechanisms to Manage Anxiety; Provide Theraputic Touch for the Patient; Explain to Patient, Using a Calm Reassuring Approach and Nonmedical Terms, All Activities, Procedures, and Concerns; Instruct Patient and Family about Post Discharge Care, Limitations, Symptoms to Report and Resources Available (Tayler Orr RN) Outcome: Patient will Identify, Verbalize and Demonstrate Techniques to Control Anxiety (Tayler Orr RN) Status: Ongoing (Tayler Orr RN) Outcome: Patient's Posture, Facial Expressions, Gestures and Activity Level will Reflect Decreased Anxiety (Tayler Orr RN) Status: Ongoing (Tayler Orr RN) Outcome: Patient will Verbalize a Sense of Control and/or Acceptance of the Situation (Tayler Orr RN) Status: Ongoing (Tayler Orr RN) Outcome: Patient will Identify and Utilize Support Person (Tayler Orr RN) Status: Ongoing (Tayler Orr RN) Knowledge Deficit State: Not Applicable (Tayler Orr RN) Infection State: Risk For (Tayler Orr RN) Related To: Invasive Procedures; Altered Tissue Integrity (Tayler Orr RN) Goal(s): The Patient will be Free of Infection, Vital Signs Stable and Lab Work within Normal Parameters (Tayler Orr RN) Interventions: Instruct and Reinforce Proper Handwashing, Hygiene, and Care Techniques to Patient and Family; Monitor Vital Signs; Monitor Patient for the Following Signs of Infection: Fever, Abdominal Tenderness, Unusual Discharge; Monitor Aminiotic Fluid, Urine and Lochia for Color and Odor; Observe Wounds, Incisions and Invasive Line Sites for Redness, Drainage and Edema; Assess IV Sites per Hospital Policy; Monitor Lab and Test Results and Notify Provider of Abnormal Findings; Assess Nutritional Status and Promote Good Nutrition (Tayler Orr RN) Outcome: Patient will Remain Free of Infection (Tayler Orr RN) Status: Ongoing (Tayler Orr RN) Outcome: Infection will be Recognized Early to Allow for Prompt Treatment (Tayler Orr RN) Status: Ongoing (Tayler Orr RN) Outcome: Patient will have Vital Signs Within Expected Range (Tayler Orr RN) Status: Ongoing (Tayler Orr, JASSON) Fluid Volume State: Not Applicable (Tayler Vitrano, RN) Injury State: Not Applicable (Tayler Vitrano, RN) Impaired Skin Integrity State: Risk For (Tayler Orr RN) Related To: Vaginal Delivery (Tyaler Orr RN) Goal(s): Patient will Maintain Optimal Skin Integrity, Free of Breakdown, Injury or Infection (Tayler Orr RN) Interventions: Complete Screening for Pressure Ulcer Risk and Initiate Protocol per Hospital Policy; Monitor Site of Skin Impairment for Color Changes, Redness, Swelling, Warmth, Pain or Other Signs of Infection; Encourage and Assist with Position Changes; Monitor Patient's Mobility Status; Provide Adequate Nutrition and Fluids; Teach Patient Appropriate Hygienic Care; Teach Patient/Family Skin Care Management (Tayler Orr RN) Outcome: Patient will not have Evidence of Injury Such as Skin Breakdown, Scrapes, Cuts, or Bruising (Tayler Orr RN) Status: Ongoing (Tayler Orr RN) Outcome: Patient will Report Any Altered Sensation or Pain at Site of Skin Impairment (Tayler Orr RN) Status: Ongoing (Tayler Orr RN) Outcome: Patients Incisions and Wounds will be without Signs or Symptoms of Infection (Tayler Orr RN) Status: Ongoing (Tayler Orr RN) Outcome: Patient will Demonstrate Understanding of Plan to Heal Skin and Prevent Reinjury and Verbalize Risk Factors (Tayler Orr RN) Status: Ongoing (Tayler Orr RN) Parenting Impaired State: Not Applicable (Tayler Kirby, RN) Nutrition State: Not Applicable (Tayler Orr, RN) Grieving State: Not Applicable (Tayler Vitrano, RN) Additional Care Plan State: Not Applicable (Tayler Vitrano, RN)
[2016-09-12 07:18] LABS: HEMATOCRIT 34.2 % (36.0-47.0); HEMOGLOBIN 11.4 g/dL (12.0-15.5); MEAN CORPUSCULAR HEMOGLOBIN 30.9 pg (27.0-33.4); MEAN CORPUSCULAR HGB CONC 33.3 g/dL (32.0-36.0); MEAN CORPUSCULAR VOLUME 93 fl (80-97); RED BLOOD COUNT 3.68 10^6/uL (3.72-5.28); RED CELL DISTRIBUTION WIDTH 14.2 % (11.5-14.0); WHITE BLOOD COUNT 13.8 10^3/uL (4.0-10.5)
[2016-09-12 09:01] VITALS: BP 113/72
[2016-09-12] MEDS: PRENATAL VITAMIN W-O CA NO5/FE FUMARATE/FA CAPSULE PO SCH (10:26)
[2016-09-12] MEDS: FERROUS SULFATE 325 MG TABLET PO SCH ×2 (10:26→17:36)
[2016-09-12] MEDS: DOCUSATE SODIUM 100 MG CAPSULE PO SCH ×2 (10:26→17:36)
[2016-09-12] MEDS: FAMOTIDINE 20 MG TABLET PO SCH (10:26)
[2016-09-12] MEDS: SENNOSIDES/DOCUSATE 8.6-50 MG 1 EACH TABLET PO SCH (10:27)
--- NOTE | 2016-09-12 10:53 | PDOC PROGRESS REPORT ---
Subjective-OB Subjective: Post Delivery Day: 2 25 year old. Denies any needs at this time, pt desires discharge if baby is discharged, states lochia is stable, pain is well controlled, voiding without difficulty. Physical Exam (OB) Vital Signs: Temp Pulse Resp BP Pulse Ox 97.6 F 75 16 113/72 100 09/12/16 08:23 09/12/16 08:23 09/12/16 08:23 09/12/16 08:23 09/12/16 08:23 Intake & Output 09/11/16 09/12/16 09/13/16 06:59 06:59 06:59 Weight 88.95 kg - Lochia Lochia Amount: Scant < 10 ml Lochia Color: Rubra/Red - Abdomen Description: Soft, Round Hernia Present: No Fundal Description: Firm, Midline Fundal Height: u/u - u/2 Objective-Diagnostic Laboratory: 09/12/16 07:08 09/12/16 07:08 WBC 13.8 H RBC 3.68 L Hgb 11.4 L Hct 34.2 L MCV 93 MCH 30.9 MCHC 33.3 RDW 14.2 H Plt Count 170 Assessment and Plan(PN) - Assessment and Plan (1) Vaginal delivery Is this a current diagnosis for this admission?: YesPlan: routine pp care d/c home may cancel d/c if baby is not discharge - Time Spent with Patient Time with patient: Less than 15 minutes Critical Time spent with patient: Less than 15 minutes Medications reviewed and adjusted accordingly: Yes - Disposition Anticipated Discharge: Home Within: within 48 hours
--- NOTE | 2016-09-12 10:56 | PDOC DISCHARGE SUMMARY ---
Discharge Summary-OB Discharge Date: 09/12/16 - Final Diagnosis (1) Vaginal delivery Is this a current diagnosis for this admission?: Yes - Discharge Medication Home Medications: Pnv W-O Ca No5/Fe Fumarate/FA [-U Multiple Vitamin Capsule] 1 each PO DAILY 03/02/12 Docusate Sodium [Colace 100 mg Capsule] 100 mg PO BID #60 capsule 09/12/16 Ibuprofen [Motrin 800 mg Tablet] 800 mg PO Q8 #60 tablet 09/12/16 Gestational Age: 41.1 Reason(s) for Admission: Onset of Labor Procedures: NST Intrapartum Procedure(s): Spontaneous Vaginal Delivery Complication(s): Laceration-Perineal Laceration-Degree: 2nd - [place] Data Baby 1 Female at 1 minute: 8 at 5 minutes: 9 Weight: 3240 kg Home with Mother: Yes Complications: No - Diagnosis Test Laboratory: Temp Pulse Resp BP Pulse Ox 97.6 F 75 16 113/72 100 09/12/16 08:23 09/12/16 08:23 09/12/16 08:23 09/12/16 08:23 09/12/16 08:23 09/10/16 09/10/16 09/12/16 22:20 22:39 07:08 RBC 3.83 3.68 L Hgb 11.9 L 11.4 L Hct 34.9 L 34.2 L Urine Opiates Screen NEGATIVE - Discharge information/Instructions Discharge Activity: Activity As Tolerated, Pelvic Rest, No tub bath Discharge Diet: Regular Disposition: HOME, SELF-CARE Follow up with: [facility] in: 4, Weeks
--- NOTE | 2016-09-13 06:02 | L&D Current Admission ---
Current Admit Datetime Report Generated by CPN: 09/13/2016 06:00 ADMISSION INFORMATION Reason for Admission: Onset of Labor (09/10/2016 22:37:Emmy Ellsworth RN) Chief Complaint: Suspected Rupture of Membranes (08/29/2016 16:01:Lisa Gonzalez RN) Method of Arrival: Wheelchair (09/10/2016 22:37:Emmy Ellsworth RN) Reason for Induction: Not Applicable (09/10/2016 22:37:Emmy Ellsworth RN) Records Available: Yes (09/10/2016 22:37:Emmy Ellsworth RN) General Admission Information: Reviewed (09/10/2016 22:37:Emmy Ellsworth RN) BELONGINGS/ADVANCED DIRECTIVES Valuables/Personal Effects: Purse/Wallet; Cell Phone; Jewelry (09/10/2016 22:37:Emmy Ellsworth RN) Disposition of Belongings: Kept with Patient (09/10/2016 22:37:Emmy Ellsworth RN) Advance Direct for Healthcare: No, and Wants No Information (09/10/2016 22:37:Emmy Ellsworth RN) Durable Power of Classification Case Manager: No (09/10/2016 22:37:Emmy Ellsworth RN) Living Will: No (09/10/2016 22:37:Emmy Ellsworth RN) Organ Donor: Yes (09/10/2016 22:37:Emmy Ellsworth RN) Pt Rights Information Given: Yes (09/10/2016 22:37:Emmy Ellsworth RN) Pt Understands Pt Rights: Yes (09/10/2016 22:37:Emmy Ellsworth RN) LEARNING ASSESSMENT Knowledge Level: Understands L_D Process; Understands Care Activities; Had Pre-Hospital Education; Understands Diagnosis (09/10/2016 22:37:Emmy Ellsworth RN) Barriers to Learning: None (09/10/2016 22:37:Emmy Ellsworth RN) Learning Readiness: Motivated (09/10/2016 22:37:Emmy Ellsworth RN) DOMESTIC VIOLANCE SCREENING Dom Viol Threatened/Hurt: No (09/10/2016 22:37:Emmy Ellsworth RN) Hx of Abuse/Neglect past 2yrs: No (09/10/2016 22:37:Emmy Ellsworth RN) Feel Unsafe Going Home: No (09/10/2016 22:37:Emmy Ellsworth RN) Addt'l Observ Indicating Abuse: No (09/10/2016 22:37:Emmy Ellsworth RN) Reason Unable to Complete Screen: N/A, Screen Completed (09/10/2016 22:37:Emmy Ellsworth RN) Considered Personal Harm/Suicide: No (09/10/2016 22:37:Emmy Ellsworth RN) NUTRITIONAL/FUNCTIONAL SCREENING Problem with Appetite >5 Days: No (09/10/2016 22:37:Emmy Ellsworth RN) Chew/Swallow Difficulties: No (09/10/2016 22:37:Emmy Ellsworth RN) Inappropriate Wt Gain/Loss: No (09/10/2016 22:37:Emmy Ellsworth RN) Presence Skin Breakdown/Ulcer: No (09/10/2016 22:37:Emmy Ellsworth RN) Special Diet: No (09/10/2016 22:37:Emmy Ellsworth RN) Pt Requests Computer Applications Instructor Visit: No (09/10/2016 22:37:Emmy Ellsworth RN) Hx of Any of the Following?: N/A (09/10/2016 22:37:Emmy Ellsworth RN) New Diagnosis of: N/A (09/10/2016 22:37:Emmy Ellsworth RN) Requires Assist w/Ambulation: No (09/10/2016 22:37:Emmy Ellsworth RN) Uses Assist Device to Ambulate: No (09/10/2016 22:37:Emmy Ellsworth RN) Pt Requires Help w/ADL's: No (09/10/2016 22:37:Emmy Ellsworth RN)
--- NOTE | 2016-09-13 06:02 | L&D General Admission ---
General Admit Datetime Report Generated by CPN: 09/13/2016 06:00 INFORMATION Patient Age: 25 (01/03/2016 20:08:QS system process) EDC: 09/03/2016 00:00 (08/29/2016 16:09:Lisa Gonzalez RN) : 3 (08/29/2016 16:09:Lisa Gonzalez RN) Para: 1 (09/03/2016 11:21:Christel Roach RN) Term: 1 (08/29/2016 16:09:Christel Roach RN) : 0 (08/29/2016 16:09:Christel Roach RN) Spontaneous Abortions: 0 (08/29/2016 16:09:Christel Roach RN) Induced Abortions: 0 (08/29/2016 16:09:Christel Roach RN) Livin (08/29/2016 16:09:Lisa Gonzalez RN) Cesareans: 0 (08/29/2016 16:09:Christel Roach RN) VBACs: 0 (08/29/2016 16:09:Christel Roach RN) Ectopic: 0 (08/29/2016 16:09:Christel Roach RN) Multiple Births: 0 (08/29/2016 16:09:Christel Roach RN) Baby, Number in Womb: 1 (09/03/2016 11:21:ANGY Draper) CARE Primary Health Information Technician: [facility] (08/29/2016 16:09:Lisa Gonzalez RN) Adequate Care: Yes (08/29/2016 16:09:Christel Roach RN) Prepregnancy Weight (lb): 148 (08/29/2016 16:09:Lisa Gonzalez RN) Prepregnancy Weight (kg): 67.3 (08/29/2016 16:09:QS system process) Height (in): 63 (09/12/2016 12:11:QS system process) ALLERGIES Medication Allergy: Yes (08/29/2016 16:09:Lisa Gonzalez RN) Medication Allergies: Penicillins/MO/Hives (09/10/2016) (09/10/2016 22:21:QS system process) Latex Allergy: No Latex Allergies (08/29/2016 16:09:Lisa Gonzalez RN) Food Allergies: none (08/29/2016 16:09:April Shea RN) Environmental Allergies: none (08/29/2016 16:09:April Shea RN) COMMUNICATION Primary Language: Occitan (08/29/2016 16:09:Lisa Gonzalez RN) Medical Tx Preferred Language: Occitan (08/29/2016 16:09:Christel Roach RN) Communication Barrier(s): None (08/29/2016 16:09:Christel Roach RN) DEMOGRAPHICS Address: [address] [place] [id number] (01/03/2016 20:08:QS system process) Zipcode: [address] (01/03/2016 20:08:QS system process) Home (01/03/2016 20:08:QS system process) Work (01/03/2016 20:08:QS system process) SSN: [id number] (01/03/2016 20:08:QS system process) Next of Kin Name: ELIEZER JC (01/03/2016 20:08:QS system process) Next of Kin (01/03/2016 20:08:QS system process) Next of Kin Relationship: SPO (01/03/2016 20:08:QS system process) Date of : 1990 (01/03/2016 20:08:QS system process) Marital Status: (01/03/2016 20:08:QS system process) Sex: Female (01/03/2016 20:08:QS system process) Race: (01/03/2016 20:08:QS system process) Ethnicity: Non- or (01/03/2016 20:08:QS system process) Bahai: Other (01/03/2016 20:08:QS system process) DRUG AND ALCOHOL USE Alcohol: No (08/29/2016 16:09:Emmy Ellsworth RN) Cigarettes: Never Smoker. [id number] (08/29/2016 16:09:Emmy Ellsworth RN) Marijuana: No (08/29/2016 16:09:Emmy Ellsworth RN) Cocaine: No (08/29/2016 16:09:Emmy Ellsworth RN) Other Illicit Drugs: No (08/29/2016 16:09:Emmy Ellsworth RN) VACCINE HISTORY Influenza Vaccine: Yes (08/29/2016 16:09:Lisa Gonzalez RN) Influenza Date: 06/25/16 (08/29/2016 16:09:Lisa Gonzalez RN) Pneumococcal Vaccine: No (08/29/2016 16:09:April Shea RN) Tetanus Vaccine: Yes (08/29/2016 16:09:Lisa Gonzalez RN) Tetanus Date: 08/23/2013 (08/29/2016 16:09:Lisa Gonzalez RN) Tdap Vaccine: Yes (08/29/2016 16:09:Lisa Gonzalez RN) Tdap Date: 08/23/2013 (08/29/2016 16:09:Lisa Gonzalez RN) Hepatitis B Vaccine: Yes (08/29/2016 16:09:April Shea RN) Mechanical Apprentice: [facility] (08/29/2016 16:09:Emmy Ellsworth RN) Feeding Preference: Breast (08/29/2016 16:09:Emmy Ellsworth RN) Benefit of Breast Feed Discussed: Yes (08/29/2016 16:09:Emmy Ellsworth RN) Circumcision: N/A (08/29/2016 16:09:Emmy Ellsworth RN) Classes Attended: No (08/29/2016 16:09:Emmy Ellsworth RN) Tubal Ligation: No (08/29/2016 16:09:Emmy Ellsworth RN) Tubal Authorization Signed: N/A (08/29/2016 16:09:Emmy Ellsworth RN) Consent: N/A (08/29/2016 16:09:Emmy Ellsworth RN) Consent Signed: N/A (08/29/2016 16:09:Emmy Ellsworth RN) Pain Management Plans: Epidural (08/29/2016 16:09:Emmy Ellsworth RN) Plans for Labor and Delivery: Other, Specify (08/29/2016 16:09:Emmy Ellsworth RN) Other Labor and Delivery Plans: delayed cord clamping, guide baby out (08/29/2016 16:09:Emmy Ellsworth RN) Support Person: Eliezer Jc (08/29/2016 16:09:Emmy Ellsworth RN) Support Person Relationship: (08/29/2016 16:09:Emmy Ellsworth RN) Cultural/Spritual Practice: No (08/29/2016 16:09:Emmy Ellsworth RN) Spir/Cult Dietary Needs: No (08/29/2016 16:09:Emmy Ellsworth RN) LIVING SITUATION/DISCHARGE PLAN Living Arrangements: House (08/29/2016 16:09:Emmy Ellsworth RN) Adequate Access to:: Electric; Heat; Refrigeration; Plumbing/Running water; Phone; Transportation (08/29/2016 16:09:Emmy Ellsworth RN) WIC Program: Yes (08/29/2016 16:09:Emmy Ellsworth RN) Discharge Electrode Cleaning Machine Operator Person: Eliezer Jc (08/29/2016 16:09:Emmy Ellsworth RN) Person to Help after Discharge: yes (08/29/2016 16:09:Emmy Ellsworth RN) Currently Using Commun Resources: Yes (08/29/2016 16:09:Emmy Ellsworth RN) Specify Current Resource Used: Medicaid (08/29/2016 16:09:Emmy Ellsworth RN) Car Seat for Discharge: Yes (08/29/2016 16:09:Emmy Ellsworth RN) Adoption Requested: No (Annotations: Data stored by CPN on behalf of user) (08/29/2016 16:09:Emmy Ellsworth RN) LABS Blood Type: O Negative (08/29/2016 16:09:Lisa Gonzalez RN) Antibody Screen: negative (08/29/2016 16:09:Emmy Ellsworth RN) Hemoglobin: 11.4 L (09/12/2016 07:08:QS system process) Hematocrit: 34.2 L (09/12/2016 07:08:QS system process) MCV: 93 (09/12/2016 07:08:QS system process) Group Beta Strep: negative (08/29/2016 16:09:Emmy Ellsworth RN) Gonorrhea: Negative (08/29/2016 16:09:Lisa Gonzalez RN) Chlamydia: Negative (08/29/2016 16:09:Lisa Gonzalez RN) RPR/VDRL: Nonreactive (08/29/2016 16:09:Emmy Ellsworth RN) Hepatitis B: Negative (08/29/2016 16:09:Lisa Gonzalez RN) Rubella: Immune (08/29/2016 16:09:Lisa Gonzalez RN) OB/PREVIOUS HISTORY Current Procedures: Ultrasound; NST (08/29/2016 16:09:April Shea RN) Comments Obstetrical History: G1: SAB G2:10/03/13 39.2 weeks G3: current (08/29/2016 16:09:Lsia Gonzalez RN)
--- NOTE | 2016-09-14 06:02 | L&D General Admission ---
General Admit Datetime Report Generated by CPN: 09/14/2016 06:00 INFORMATION Patient Age: 25 (01/03/2016 20:08:QS system process) EDC: 09/03/2016 00:00 (08/29/2016 16:09:Lisa Gonzalez RN) : 3 (08/29/2016 16:09:Lisa Gonzalez RN) Para: 1 (09/03/2016 11:21:Christel Roach RN) Term: 1 (08/29/2016 16:09:Christel Roach RN) : 0 (08/29/2016 16:09:Christel Roach RN) Spontaneous Abortions: 0 (08/29/2016 16:09:Christel Roach RN) Induced Abortions: 0 (08/29/2016 16:09:Christel Roach RN) Livin (08/29/2016 16:09:Lisa Gonzalez RN) Cesareans: 0 (08/29/2016 16:09:Christel Roach RN) VBACs: 0 (08/29/2016 16:09:Christel Roach RN) Ectopic: 0 (08/29/2016 16:09:Christel Roach RN) Multiple Births: 0 (08/29/2016 16:09:Christel Roach RN) Baby, Number in Womb: 1 (09/03/2016 11:21:ANGY Draper) CARE Primary Shank Tapper: [facility] (08/29/2016 16:09:Lisa Gonzalez RN) Adequate Care: Yes (08/29/2016 16:09:Christel Roach RN) Prepregnancy Weight (lb): 148 (08/29/2016 16:09:Lisa Gonzalez RN) Prepregnancy Weight (kg): 67.3 (08/29/2016 16:09:QS system process) Height (in): 63 (09/12/2016 12:11:QS system process) ALLERGIES Medication Allergy: Yes (08/29/2016 16:09:Lisa Gonzalez RN) Medication Allergies: Penicillins/MO/Hives (09/10/2016) (09/10/2016 22:21:QS system process) Latex Allergy: No Latex Allergies (08/29/2016 16:09:Lisa Gonzalez RN) Food Allergies: none (08/29/2016 16:09:April Shea RN) Environmental Allergies: none (08/29/2016 16:09:April Shea RN) COMMUNICATION Primary Language: Swedish (08/29/2016 16:09:Lisa Gonzalez RN) Medical Tx Preferred Language: Swedish (08/29/2016 16:09:Christel Roach RN) Communication Barrier(s): None (08/29/2016 16:09:Christel Roach RN) DEMOGRAPHICS Address: [address] [place] [id number] (01/03/2016 20:08:QS system process) Zipcode: [address] (01/03/2016 20:08:QS system process) Home (01/03/2016 20:08:QS system process) Work (01/03/2016 20:08:QS system process) SSN: [id number] (01/03/2016 20:08:QS system process) Next of Kin Name: ELIEZER JC (01/03/2016 20:08:QS system process) Next of Kin (01/03/2016 20:08:QS system process) Next of Kin Relationship: SPO (01/03/2016 20:08:QS system process) Date of : 1990 (01/03/2016 20:08:QS system process) Marital Status: (01/03/2016 20:08:QS system process) Sex: Female (01/03/2016 20:08:QS system process) Race: (01/03/2016 20:08:QS system process) Ethnicity: Non- or (01/03/2016 20:08:QS system process) Christian: Other (01/03/2016 20:08:QS system process) DRUG AND ALCOHOL USE Alcohol: No (08/29/2016 16:09:Emmy Ellsworth RN) Cigarettes: Never Smoker. [id number] (08/29/2016 16:09:Emmy Ellsworth RN) Marijuana: No (08/29/2016 16:09:Emmy Ellsworth RN) Cocaine: No (08/29/2016 16:09:Emmy Ellsworth RN) Other Illicit Drugs: No (08/29/2016 16:09:Emmy Ellsworth RN) VACCINE HISTORY Influenza Vaccine: Yes (08/29/2016 16:09:Lisa Gonzalez RN) Influenza Date: 06/25/16 (08/29/2016 16:09:Lisa Gonzalez RN) Pneumococcal Vaccine: No (08/29/2016 16:09:April Shea RN) Tetanus Vaccine: Yes (08/29/2016 16:09:Lisa Gonzalez RN) Tetanus Date: 08/23/2013 (08/29/2016 16:09:Lisa Gonzalez RN) Tdap Vaccine: Yes (08/29/2016 16:09:Lisa Gonzalez RN) Tdap Date: 08/23/2013 (08/29/2016 16:09:Lisa Gonzalez RN) Hepatitis B Vaccine: Yes (08/29/2016 16:09:April Shea RN) Large Engine Assembler: [facility] (08/29/2016 16:09:Emmy Ellsworth RN) Feeding Preference: Breast (08/29/2016 16:09:Emmy Ellsworth RN) Benefit of Breast Feed Discussed: Yes (08/29/2016 16:09:Emmy Ellsworth RN) Circumcision: N/A (08/29/2016 16:09:Emmy Ellsworth RN) Classes Attended: No (08/29/2016 16:09:Emmy Ellsworth RN) Tubal Ligation: No (08/29/2016 16:09:Emmy Ellsworth RN) Tubal Authorization Signed: N/A (08/29/2016 16:09:Emmy Ellsworth RN) Consent: N/A (08/29/2016 16:09:Emmy Ellsworth RN) Consent Signed: N/A (08/29/2016 16:09:Emmy Ellsworth RN) Pain Management Plans: Epidural (08/29/2016 16:09:Emmy Ellsworth RN) Plans for Labor and Delivery: Other, Specify (08/29/2016 16:09:Emmy Ellsworth RN) Other Labor and Delivery Plans: delayed cord clamping, guide baby out (08/29/2016 16:09:Emmy Ellsworth RN) Support Person: Eliezer Jc (08/29/2016 16:09:Emmy Ellsworth RN) Support Person Relationship: (08/29/2016 16:09:Emmy Ellsworth RN) Cultural/Spritual Practice: No (08/29/2016 16:09:Emmy Ellsworth RN) Spir/Cult Dietary Needs: No (08/29/2016 16:09:Emmy Ellsworth RN) LIVING SITUATION/DISCHARGE PLAN Living Arrangements: House (08/29/2016 16:09:Emmy Ellsworth RN) Adequate Access to:: Electric; Heat; Refrigeration; Plumbing/Running water; Phone; Transportation (08/29/2016 16:09:Emmy Ellsworth RN) WIC Program: Yes (08/29/2016 16:09:Emmy Ellsworth RN) Discharge Pillow Filler Person: Eliezer Jc (08/29/2016 16:09:Emmy Ellsworth RN) Person to Help after Discharge: yes (08/29/2016 16:09:Emmy Ellsworth RN) Currently Using Commun Resources: Yes (08/29/2016 16:09:Emmy Ellsworth RN) Specify Current Resource Used: Medicaid (08/29/2016 16:09:Emmy Ellsworth RN) Car Seat for Discharge: Yes (08/29/2016 16:09:Emmy Ellsworth RN) Adoption Requested: No (Annotations: Data stored by CPN on behalf of user) (08/29/2016 16:09:Emmy Ellsworth RN) LABS Blood Type: O Negative (08/29/2016 16:09:Lisa Gonzalez RN) Antibody Screen: negative (08/29/2016 16:09:Emmy Ellsworth RN) Hemoglobin: 11.4 L (09/12/2016 07:08:QS system process) Hematocrit: 34.2 L (09/12/2016 07:08:QS system process) MCV: 93 (09/12/2016 07:08:QS system process) Group Beta Strep: negative (08/29/2016 16:09:Emmy Ellsworth RN) Gonorrhea: Negative (08/29/2016 16:09:Lisa Gonzalez RN) Chlamydia: Negative (08/29/2016 16:09:Lisa Gonzalez RN) RPR/VDRL: Nonreactive (08/29/2016 16:09:Emmy Ellsworth RN) Hepatitis B: Negative (08/29/2016 16:09:Lisa Gonzalez RN) Rubella: Immune (08/29/2016 16:09:Lisa Gonzalez RN) OB/PREVIOUS HISTORY Current Procedures: Ultrasound; NST (08/29/2016 16:09:April Shea RN) Comments Obstetrical History: G1: SAB G2:10/03/13 39.2 weeks G3: current (08/29/2016 16:09:Lisa Gonzalez RN)
--- NOTE | 2016-09-14 06:02 | L&D Current Admission ---
Current Admit Datetime Report Generated by CPN: 09/14/2016 06:00 ADMISSION INFORMATION Reason for Admission: Onset of Labor (09/10/2016 22:37:Emmy Ellsworth RN) Chief Complaint: Suspected Rupture of Membranes (08/29/2016 16:01:Lisa Gonzalez RN) Method of Arrival: Wheelchair (09/10/2016 22:37:Emmy Ellsworth RN) Reason for Induction: Not Applicable (09/10/2016 22:37:Emmy Ellsworth RN) Records Available: Yes (09/10/2016 22:37:Emmy Ellsworth RN) General Admission Information: Reviewed (09/10/2016 22:37:Emmy Ellsworth RN) BELONGINGS/ADVANCED DIRECTIVES Valuables/Personal Effects: Purse/Wallet; Cell Phone; Jewelry (09/10/2016 22:37:Emmy Ellsworth RN) Disposition of Belongings: Kept with Patient (09/10/2016 22:37:Emmy Ellsworth RN) Advance Direct for Healthcare: No, and Wants No Information (09/10/2016 22:37:Emmy Ellsworth RN) Durable Power of Tapper Operator: No (09/10/2016 22:37:Emmy Ellsworth RN) Living Will: No (09/10/2016 22:37:Emmy Ellsworth RN) Organ Donor: Yes (09/10/2016 22:37:Emmy Ellsworth RN) Pt Rights Information Given: Yes (09/10/2016 22:37:Emmy Ellsworth RN) Pt Understands Pt Rights: Yes (09/10/2016 22:37:Emmy Ellsworth RN) LEARNING ASSESSMENT Knowledge Level: Understands L_D Process; Understands Care Activities; Had Pre-Hospital Education; Understands Diagnosis (09/10/2016 22:37:Emmy Ellsworth RN) Barriers to Learning: None (09/10/2016 22:37:Emmy Ellsworth RN) Learning Readiness: Motivated (09/10/2016 22:37:Emmy Ellsworth RN) DOMESTIC VIOLANCE SCREENING Dom Viol Threatened/Hurt: No (09/10/2016 22:37:Emmy Ellsworth RN) Hx of Abuse/Neglect past 2yrs: No (09/10/2016 22:37:Emmy Ellsworth RN) Feel Unsafe Going Home: No (09/10/2016 22:37:Emmy Ellsworth RN) Addt'l Observ Indicating Abuse: No (09/10/2016 22:37:Emmy Ellsworth RN) Reason Unable to Complete Screen: N/A, Screen Completed (09/10/2016 22:37:Emmy Ellsworth RN) Considered Personal Harm/Suicide: No (09/10/2016 22:37:Emmy Ellsworth RN) NUTRITIONAL/FUNCTIONAL SCREENING Problem with Appetite >5 Days: No (09/10/2016 22:37:Emmy Ellsworth RN) Chew/Swallow Difficulties: No (09/10/2016 22:37:Emmy Ellsworth RN) Inappropriate Wt Gain/Loss: No (09/10/2016 22:37:mEmy Ellsworth RN) Presence Skin Breakdown/Ulcer: No (09/10/2016 22:37:Emmy Ellsworth RN) Special Diet: No (09/10/2016 22:37:Emmy Ellsworth RN) Pt Requests Data Programmer Visit: No (09/10/2016 22:37:Emmy Ellsworth RN) Hx of Any of the Following?: N/A (09/10/2016 22:37:Emmy Ellsworth RN) New Diagnosis of: N/A (09/10/2016 22:37:Emmy Ellsworth RN) Requires Assist w/Ambulation: No (09/10/2016 22:37:Emmy Ellsworth RN) Uses Assist Device to Ambulate: No (09/10/2016 22:37:Emmy Ellsworth RN) Pt Requires Help w/ADL's: No (09/10/2016 22:37:Emmy Ellsworth RN)
--- NOTE | 2016-09-15 06:01 | L&D Current Admission ---
Current Admit Datetime Report Generated by CPN: 09/15/2016 06:00 ADMISSION INFORMATION Reason for Admission: Onset of Labor (09/10/2016 22:37:Emmy Ellsworth RN) Chief Complaint: Suspected Rupture of Membranes (08/29/2016 16:01:Lisa Gonzalez RN) Method of Arrival: Wheelchair (09/10/2016 22:37:Emmy Ellsworth RN) Reason for Induction: Not Applicable (09/10/2016 22:37:Emmy Ellsworth RN) Records Available: Yes (09/10/2016 22:37:Emmy Ellsworth RN) General Admission Information: Reviewed (09/10/2016 22:37:Emmy Ellsworth RN) BELONGINGS/ADVANCED DIRECTIVES Valuables/Personal Effects: Purse/Wallet; Cell Phone; Jewelry (09/10/2016 22:37:Emmy Ellsworth RN) Disposition of Belongings: Kept with Patient (09/10/2016 22:37:Emmy Ellsworth RN) Advance Direct for Healthcare: No, and Wants No Information (09/10/2016 22:37:Emmy Ellsworth RN) Durable Power of Sample Coordinator: No (09/10/2016 22:37:Emmy Ellsworth RN) Living Will: No (09/10/2016 22:37:Emmy Ellsworth RN) Organ Donor: Yes (09/10/2016 22:37:Emmy Ellsworth RN) Pt Rights Information Given: Yes (09/10/2016 22:37:Emmy Ellsworth RN) Pt Understands Pt Rights: Yes (09/10/2016 22:37:Emmy Ellsworth RN) LEARNING ASSESSMENT Knowledge Level: Understands L_D Process; Understands Care Activities; Had Pre-Hospital Education; Understands Diagnosis (09/10/2016 22:37:Emmy Ellsworth RN) Barriers to Learning: None (09/10/2016 22:37:Emmy Ellsworth RN) Learning Readiness: Motivated (09/10/2016 22:37:Emmy Ellsworth RN) DOMESTIC VIOLANCE SCREENING Dom Viol Threatened/Hurt: No (09/10/2016 22:37:Emmy Ellsworth RN) Hx of Abuse/Neglect past 2yrs: No (09/10/2016 22:37:Emmy Ellsworth RN) Feel Unsafe Going Home: No (09/10/2016 22:37:Emmy Ellsworth RN) Addt'l Observ Indicating Abuse: No (09/10/2016 22:37:Emmy Ellsworth RN) Reason Unable to Complete Screen: N/A, Screen Completed (09/10/2016 22:37:Emmy Ellsworth RN) Considered Personal Harm/Suicide: No (09/10/2016 22:37:Emmy Ellsworth RN) NUTRITIONAL/FUNCTIONAL SCREENING Problem with Appetite >5 Days: No (09/10/2016 22:37:Emmy Ellsworth RN) Chew/Swallow Difficulties: No (09/10/2016 22:37:Emmy Ellsworth RN) Inappropriate Wt Gain/Loss: No (09/10/2016 22:37:Emmy Ellsworth RN) Presence Skin Breakdown/Ulcer: No (09/10/2016 22:37:Emmy Ellsworth RN) Special Diet: No (09/10/2016 22:37:Emmy Ellsworth RN) Pt Requests Report Checker Visit: No (09/10/2016 22:37:Emmy Ellsworth RN) Hx of Any of the Following?: N/A (09/10/2016 22:37:Emmy Ellsworth RN) New Diagnosis of: N/A (09/10/2016 22:37:Emmy Ellsworth RN) Requires Assist w/Ambulation: No (09/10/2016 22:37:Emmy Ellsworth RN) Uses Assist Device to Ambulate: No (09/10/2016 22:37:Emmy Ellsworth RN) Pt Requires Help w/ADL's: No (09/10/2016 22:37:Emmy Ellsworth RN)
--- NOTE | 2016-09-15 06:01 | L&D General Admission ---
General Admit Datetime Report Generated by CPN: 09/15/2016 06:00 INFORMATION Patient Age: 25 (01/03/2016 20:08:QS system process) EDC: 09/03/2016 00:00 (08/29/2016 16:09:Lisa Gonzalez RN) : 3 (08/29/2016 16:09:Lisa Gonzalez RN) Para: 1 (09/03/2016 11:21:Christel Roach RN) Term: 1 (08/29/2016 16:09:Christel Roach RN) : 0 (08/29/2016 16:09:Christel Roach RN) Spontaneous Abortions: 0 (08/29/2016 16:09:Christel Roach RN) Induced Abortions: 0 (08/29/2016 16:09:Christel Roach RN) Livin (08/29/2016 16:09:Lisa Gonzalez RN) Cesareans: 0 (08/29/2016 16:09:Christel Roach RN) VBACs: 0 (08/29/2016 16:09:Christel Roach RN) Ectopic: 0 (08/29/2016 16:09:Christel Roach RN) Multiple Births: 0 (08/29/2016 16:09:Christel Roach RN) Baby, Number in Womb: 1 (09/03/2016 11:21:ANGY Draper) CARE Primary Computer Graphics Illustrator: [facility] (08/29/2016 16:09:Lisa Gonzalez RN) Adequate Care: Yes (08/29/2016 16:09:Christel Roach RN) Prepregnancy Weight (lb): 148 (08/29/2016 16:09:Lisa Gonzalez RN) Prepregnancy Weight (kg): 67.3 (08/29/2016 16:09:QS system process) Height (in): 63 (09/12/2016 12:11:QS system process) ALLERGIES Medication Allergy: Yes (08/29/2016 16:09:Lisa Gonzalez RN) Medication Allergies: Penicillins/MO/Hives (09/10/2016) (09/10/2016 22:21:QS system process) Latex Allergy: No Latex Allergies (08/29/2016 16:09:Lisa Gonzalez RN) Food Allergies: none (08/29/2016 16:09:April Shea RN) Environmental Allergies: none (08/29/2016 16:09:April Shea RN) COMMUNICATION Primary Language: Latvian (08/29/2016 16:09:Lisa Gonzalez RN) Medical Tx Preferred Language: Latvian (08/29/2016 16:09:Christel Roach RN) Communication Barrier(s): None (08/29/2016 16:09:Christel Roach RN) DEMOGRAPHICS Address: [address] [place] [id number] (01/03/2016 20:08:QS system process) Zipcode: [address] (01/03/2016 20:08:QS system process) Home (01/03/2016 20:08:QS system process) Work (01/03/2016 20:08:QS system process) SSN: [id number] (01/03/2016 20:08:QS system process) Next of Kin Name: ELIEZER JC (01/03/2016 20:08:QS system process) Next of Kin (01/03/2016 20:08:QS system process) Next of Kin Relationship: SPO (01/03/2016 20:08:QS system process) Date of : 1990 (01/03/2016 20:08:QS system process) Marital Status: (01/03/2016 20:08:QS system process) Sex: Female (01/03/2016 20:08:QS system process) Race: (01/03/2016 20:08:QS system process) Ethnicity: Non- or (01/03/2016 20:08:QS system process) Muslim: Other (01/03/2016 20:08:QS system process) DRUG AND ALCOHOL USE Alcohol: No (08/29/2016 16:09:Emmy Ellsworth RN) Cigarettes: Never Smoker. [id number] (08/29/2016 16:09:Emmy Ellsworth RN) Marijuana: No (08/29/2016 16:09:Emmy Ellsworth RN) Cocaine: No (08/29/2016 16:09:Emmy Ellsworth RN) Other Illicit Drugs: No (08/29/2016 16:09:Emmy Ellsworth RN) VACCINE HISTORY Influenza Vaccine: Yes (08/29/2016 16:09:Lisa Gonzalez RN) Influenza Date: 06/25/16 (08/29/2016 16:09:Lisa Gonzalez RN) Pneumococcal Vaccine: No (08/29/2016 16:09:April Shea RN) Tetanus Vaccine: Yes (08/29/2016 16:09:Lisa Gonzalez RN) Tetanus Date: 08/23/2013 (08/29/2016 16:09:Lisa Gonzalez RN) Tdap Vaccine: Yes (08/29/2016 16:09:Lisa Gonzalez RN) Tdap Date: 08/23/2013 (08/29/2016 16:09:Lias Gonzalez RN) Hepatitis B Vaccine: Yes (08/29/2016 16:09:April Shea RN) Manufacturing Supervisor: [facility] (08/29/2016 16:09:Emmy Ellsworth RN) Feeding Preference: Breast (08/29/2016 16:09:Emmy Ellsworth RN) Benefit of Breast Feed Discussed: Yes (08/29/2016 16:09:Emmy Ellsworth RN) Circumcision: N/A (08/29/2016 16:09:Emmy Ellsworth RN) Classes Attended: No (08/29/2016 16:09:Emmy Ellsworth RN) Tubal Ligation: No (08/29/2016 16:09:Emmy Ellsworth RN) Tubal Authorization Signed: N/A (08/29/2016 16:09:Emmy Ellsworth RN) Consent: N/A (08/29/2016 16:09:Emmy Ellsworth RN) Consent Signed: N/A (08/29/2016 16:09:Emmy Ellsworth RN) Pain Management Plans: Epidural (08/29/2016 16:09:Emmy Ellsworth RN) Plans for Labor and Delivery: Other, Specify (08/29/2016 16:09:Emmy Ellsworth RN) Other Labor and Delivery Plans: delayed cord clamping, guide baby out (08/29/2016 16:09:Emmy Ellsworth RN) Support Person: Eliezer Jc (08/29/2016 16:09:Emmy Ellsworth RN) Support Person Relationship: (08/29/2016 16:09:Emmy Ellsworth RN) Cultural/Spritual Practice: No (08/29/2016 16:09:Emmy Ellsworth RN) Spir/Cult Dietary Needs: No (08/29/2016 16:09:Emmy Ellsworth RN) LIVING SITUATION/DISCHARGE PLAN Living Arrangements: House (08/29/2016 16:09:Emmy Ellsworth RN) Adequate Access to:: Electric; Heat; Refrigeration; Plumbing/Running water; Phone; Transportation (08/29/2016 16:09:Emmy Ellsworth RN) WIC Program: Yes (08/29/2016 16:09:Emmy Ellsworth RN) Discharge Gang Leader Person: Eliezer Jc (08/29/2016 16:09:Emmy Ellsworth RN) Person to Help after Discharge: yes (08/29/2016 16:09:Emmy Ellsworth RN) Currently Using Commun Resources: Yes (08/29/2016 16:09:Emmy Ellsworth RN) Specify Current Resource Used: Medicaid (08/29/2016 16:09:Emmy Ellsworth RN) Car Seat for Discharge: Yes (08/29/2016 16:09:Emmy Ellsworth RN) Adoption Requested: No (Annotations: Data stored by CPN on behalf of user) (08/29/2016 16:09:Emmy Ellsworth RN) LABS Blood Type: O Negative (08/29/2016 16:09:Lisa Gonzalez RN) Antibody Screen: negative (08/29/2016 16:09:Emmy Ellsworth RN) Hemoglobin: 11.4 L (09/12/2016 07:08:QS system process) Hematocrit: 34.2 L (09/12/2016 07:08:QS system process) MCV: 93 (09/12/2016 07:08:QS system process) Group Beta Strep: negative (08/29/2016 16:09:Emmy Ellsworth RN) Gonorrhea: Negative (08/29/2016 16:09:Lisa Gonzalez RN) Chlamydia: Negative (08/29/2016 16:09:Lisa Gonzalez RN) RPR/VDRL: Nonreactive (08/29/2016 16:09:Emmy Ellsworth RN) Hepatitis B: Negative (08/29/2016 16:09:Lisa Gonzalez RN) Rubella: Immune (08/29/2016 16:09:Lisa Gonzalez RN) OB/PREVIOUS HISTORY Current Procedures: Ultrasound; NST (08/29/2016 16:09:April Shea RN) Comments Obstetrical History: G1: SAB G2:10/03/13 39.2 weeks G3: current (08/29/2016 16:09:Lisa Gonzalez RN)
--- NOTE | 2016-09-16 06:01 | L&D General Admission ---
General Admit Datetime Report Generated by CPN: 09/16/2016 06:00 INFORMATION Patient Age: 25 (01/03/2016 20:08:QS system process) EDC: 09/03/2016 00:00 (08/29/2016 16:09:Lisa Gonzalez RN) : 3 (08/29/2016 16:09:Lisa Gonzalez RN) Para: 1 (09/03/2016 11:21:Christel Roach RN) Term: 1 (08/29/2016 16:09:Christel Roach RN) : 0 (08/29/2016 16:09:Christel Roach RN) Spontaneous Abortions: 0 (08/29/2016 16:09:Christel Roach RN) Induced Abortions: 0 (08/29/2016 16:09:Christel Roach RN) Livin (08/29/2016 16:09:Lisa Gonzalez RN) Cesareans: 0 (08/29/2016 16:09:Christel Roach RN) VBACs: 0 (08/29/2016 16:09:Christel Roach RN) Ectopic: 0 (08/29/2016 16:09:Christel Roach RN) Multiple Births: 0 (08/29/2016 16:09:Christel Roach RN) Baby, Number in Womb: 1 (09/03/2016 11:21:ANGY Draper) CARE Primary Recruiting Coordinator: [facility] (08/29/2016 16:09:Lisa Gonzalez RN) Adequate Care: Yes (08/29/2016 16:09:Christel Roach RN) Prepregnancy Weight (lb): 148 (08/29/2016 16:09:Lisa Gonzalez RN) Prepregnancy Weight (kg): 67.3 (08/29/2016 16:09:QS system process) Height (in): 63 (09/12/2016 12:11:QS system process) ALLERGIES Medication Allergy: Yes (08/29/2016 16:09:Lisa Gonzalez RN) Medication Allergies: Penicillins/MO/Hives (09/10/2016) (09/10/2016 22:21:QS system process) Latex Allergy: No Latex Allergies (08/29/2016 16:09:Lisa Gonzalez RN) Food Allergies: none (08/29/2016 16:09:April Shea RN) Environmental Allergies: none (08/29/2016 16:09:April hSea RN) COMMUNICATION Primary Language: Albanian (08/29/2016 16:09:Lisa Gonzalez RN) Medical Tx Preferred Language: Albanian (08/29/2016 16:09:Christel Roach RN) Communication Barrier(s): None (08/29/2016 16:09:Christel Roach RN) DEMOGRAPHICS Address: [address] [place] [id number] (01/03/2016 20:08:QS system process) Zipcode: [address] (01/03/2016 20:08:QS system process) Home (01/03/2016 20:08:QS system process) Work (01/03/2016 20:08:QS system process) SSN: [id number] (01/03/2016 20:08:QS system process) Next of Kin Name: ELIEZRE JC (01/03/2016 20:08:QS system process) Next of Kin (01/03/2016 20:08:QS system process) Next of Kin Relationship: SPO (01/03/2016 20:08:QS system process) Date of : 1990 (01/03/2016 20:08:QS system process) Marital Status: (01/03/2016 20:08:QS system process) Sex: Female (01/03/2016 20:08:QS system process) Race: (01/03/2016 20:08:QS system process) Ethnicity: Non- or (01/03/2016 20:08:QS system process) Samaritan: Other (01/03/2016 20:08:QS system process) DRUG AND ALCOHOL USE Alcohol: No (08/29/2016 16:09:Emmy Ellsworth RN) Cigarettes: Never Smoker. [id number] (08/29/2016 16:09:Emmy Ellsworth RN) Marijuana: No (08/29/2016 16:09:Emmy Ellsworth RN) Cocaine: No (08/29/2016 16:09:Emmy Ellsworth RN) Other Illicit Drugs: No (08/29/2016 16:09:Emmy Ellsworth RN) VACCINE HISTORY Influenza Vaccine: Yes (08/29/2016 16:09:Lisa Gonzalez RN) Influenza Date: 06/25/16 (08/29/2016 16:09:Lisa Gonzalez RN) Pneumococcal Vaccine: No (08/29/2016 16:09:April Shea RN) Tetanus Vaccine: Yes (08/29/2016 16:09:Lisa Gonzalez RN) Tetanus Date: 08/23/2013 (08/29/2016 16:09:Lisa Gonzalez RN) Tdap Vaccine: Yes (08/29/2016 16:09:Lisa Gonzalez RN) Tdap Date: 08/23/2013 (08/29/2016 16:09:Lisa Gonzalez RN) Hepatitis B Vaccine: Yes (08/29/2016 16:09:April Shea RN) Linoleum Layer: [facility] (08/29/2016 16:09:Emmy Ellsworth RN) Feeding Preference: Breast (08/29/2016 16:09:Emmy Ellsworth RN) Benefit of Breast Feed Discussed: Yes (08/29/2016 16:09:Emmy Ellsworth RN) Circumcision: N/A (08/29/2016 16:09:Emmy Ellsworth RN) Classes Attended: No (08/29/2016 16:09:Emmy Ellsworth RN) Tubal Ligation: No (08/29/2016 16:09:Emmy Ellsworth RN) Tubal Authorization Signed: N/A (08/29/2016 16:09:Emmy Ellsworth RN) Consent: N/A (08/29/2016 16:09:Emmy Ellsworth RN) Consent Signed: N/A (08/29/2016 16:09:Emmy Ellsworth RN) Pain Management Plans: Epidural (08/29/2016 16:09:Emmy Ellsworth RN) Plans for Labor and Delivery: Other, Specify (08/29/2016 16:09:Emmy Ellsworth RN) Other Labor and Delivery Plans: delayed cord clamping, guide baby out (08/29/2016 16:09:Emmy Ellsworth RN) Support Person: Eliezer Jc (08/29/2016 16:09:Emmy Ellsworth RN) Support Person Relationship: (08/29/2016 16:09:Emmy Ellsworth RN) Cultural/Spritual Practice: No (08/29/2016 16:09:Emmy Ellsworth RN) Spir/Cult Dietary Needs: No (08/29/2016 16:09:Emmy Ellsworth RN) LIVING SITUATION/DISCHARGE PLAN Living Arrangements: House (08/29/2016 16:09:Emmy Ellsworth RN) Adequate Access to:: Electric; Heat; Refrigeration; Plumbing/Running water; Phone; Transportation (08/29/2016 16:09:Emmy Ellsworth RN) WIC Program: Yes (08/29/2016 16:09:Emmy Ellsworth RN) Discharge Tool Liaison Person: Eliezer Jc (08/29/2016 16:09:Emmy Ellsworth RN) Person to Help after Discharge: yes (08/29/2016 16:09:Emmy Ellsworth RN) Currently Using Commun Resources: Yes (08/29/2016 16:09:Emmy Ellsworth RN) Specify Current Resource Used: Medicaid (08/29/2016 16:09:Emmy Ellsworth RN) Car Seat for Discharge: Yes (08/29/2016 16:09:Emmy Ellsworth RN) Adoption Requested: No (Annotations: Data stored by CPN on behalf of user) (08/29/2016 16:09:Emmy Ellsworth RN) LABS Blood Type: O Negative (08/29/2016 16:09:Lisa Gonzalez RN) Antibody Screen: negative (08/29/2016 16:09:Emmy Ellsworth RN) Hemoglobin: 11.4 L (09/12/2016 07:08:QS system process) Hematocrit: 34.2 L (09/12/2016 07:08:QS system process) MCV: 93 (09/12/2016 07:08:QS system process) Group Beta Strep: negative (08/29/2016 16:09:Emmy Ellsworth RN) Gonorrhea: Negative (08/29/2016 16:09:Lisa Gonzalez RN) Chlamydia: Negative (08/29/2016 16:09:Lisa Gonzalez RN) RPR/VDRL: Nonreactive (08/29/2016 16:09:Emmy Ellsworth RN) Hepatitis B: Negative (08/29/2016 16:09:Lisa Gonzalez RN) Rubella: Immune (08/29/2016 16:09:Lisa Gonzalez RN) OB/PREVIOUS HISTORY Current Procedures: Ultrasound; NST (08/29/2016 16:09:April Shea RN) Comments Obstetrical History: G1: SAB G2:10/03/13 39.2 weeks G3: current (08/29/2016 16:09:Lisa Gonzalez RN)
--- NOTE | 2016-09-17 06:08 | L&D Current Admission ---
Current Admit Datetime Report Generated by CPN: 09/17/2016 06:00 ADMISSION INFORMATION Reason for Admission: Onset of Labor (09/10/2016 22:37:Emmy Ellsworth RN) Chief Complaint: Suspected Rupture of Membranes (08/29/2016 16:01:Lisa Gonzalez RN) Method of Arrival: Wheelchair (09/10/2016 22:37:Emmy Ellsworth RN) Reason for Induction: Not Applicable (09/10/2016 22:37:Emmy Ellsworth RN) Records Available: Yes (09/10/2016 22:37:Emmy Ellsworth RN) General Admission Information: Reviewed (09/10/2016 22:37:Emmy Ellsworth RN) BELONGINGS/ADVANCED DIRECTIVES Valuables/Personal Effects: Purse/Wallet; Cell Phone; Jewelry (09/10/2016 22:37:Emmy Ellsworth RN) Disposition of Belongings: Kept with Patient (09/10/2016 22:37:Emmy Ellsworth RN) Advance Direct for Healthcare: No, and Wants No Information (09/10/2016 22:37:Emmy Ellsworth RN) Durable Power of Trade Mark Examiner: No (09/10/2016 22:37:Emmy Ellsworth RN) Living Will: No (09/10/2016 22:37:Emmy Ellsworth RN) Organ Donor: Yes (09/10/2016 22:37:Emmy Ellsworth RN) Pt Rights Information Given: Yes (09/10/2016 22:37:Emmy Ellsworth RN) Pt Understands Pt Rights: Yes (09/10/2016 22:37:Emmy Ellsworth RN) LEARNING ASSESSMENT Knowledge Level: Understands L_D Process; Understands Care Activities; Had Pre-Hospital Education; Understands Diagnosis (09/10/2016 22:37:Emmy Ellsworth RN) Barriers to Learning: None (09/10/2016 22:37:Emmy Ellsworth RN) Learning Readiness: Motivated (09/10/2016 22:37:Emmy Ellsworth RN) DOMESTIC VIOLANCE SCREENING Dom Viol Threatened/Hurt: No (09/10/2016 22:37:Emmy Ellsworth RN) Hx of Abuse/Neglect past 2yrs: No (09/10/2016 22:37:Emmy Ellsworth RN) Feel Unsafe Going Home: No (09/10/2016 22:37:Emmy Ellsworth RN) Addt'l Observ Indicating Abuse: No (09/10/2016 22:37:Emmy Ellsworth RN) Reason Unable to Complete Screen: N/A, Screen Completed (09/10/2016 22:37:Emmy Ellsworth RN) Considered Personal Harm/Suicide: No (09/10/2016 22:37:Emmy Ellsworth RN) NUTRITIONAL/FUNCTIONAL SCREENING Problem with Appetite >5 Days: No (09/10/2016 22:37:Emmy Ellsworth RN) Chew/Swallow Difficulties: No (09/10/2016 22:37:Emmy Ellsworth RN) Inappropriate Wt Gain/Loss: No (09/10/2016 22:37:Emmy Ellsworth RN) Presence Skin Breakdown/Ulcer: No (09/10/2016 22:37:Emmy Ellsworth RN) Special Diet: No (09/10/2016 22:37:Emym Ellsworth RN) Pt Requests Regional Account Executive Visit: No (09/10/2016 22:37:Emmy Ellsworth RN) Hx of Any of the Following?: N/A (09/10/2016 22:37:Emmy Ellsworth RN) New Diagnosis of: N/A (09/10/2016 22:37:Emmy Ellsworth RN) Requires Assist w/Ambulation: No (09/10/2016 22:37:Emmy Ellsworth RN) Uses Assist Device to Ambulate: No (09/10/2016 22:37:Emmy Ellsworth RN) Pt Requires Help w/ADL's: No (09/10/2016 22:37:Emmy Ellsworth RN)
--- NOTE | 2016-09-17 06:08 | L&D General Admission ---
General Admit Datetime Report Generated by CPN: 09/17/2016 06:00 INFORMATION Patient Age: 25 (01/03/2016 20:08:QS system process) EDC: 09/03/2016 00:00 (08/29/2016 16:09:Lisa Gonzalez RN) : 3 (08/29/2016 16:09:Lisa Gonzalez RN) Para: 1 (09/03/2016 11:21:Christel Roach RN) Term: 1 (08/29/2016 16:09:Christel Roach RN) : 0 (08/29/2016 16:09:Christel Roach RN) Spontaneous Abortions: 0 (08/29/2016 16:09:Christel Roach RN) Induced Abortions: 0 (08/29/2016 16:09:Christel Roach RN) Livin (08/29/2016 16:09:Lisa Gonzalez RN) Cesareans: 0 (08/29/2016 16:09:Christel Roach RN) VBACs: 0 (08/29/2016 16:09:Christel Roach RN) Ectopic: 0 (08/29/2016 16:09:Christel Roach RN) Multiple Births: 0 (08/29/2016 16:09:Christel Roach RN) Baby, Number in Womb: 1 (09/03/2016 11:21:ANGY Draper) CARE Primary Chair Mechanic: [facility] (08/29/2016 16:09:Lisa Gonzalez RN) Adequate Care: Yes (08/29/2016 16:09:Christel Roach RN) Prepregnancy Weight (lb): 148 (08/29/2016 16:09:Lisa Gonzalez RN) Prepregnancy Weight (kg): 67.3 (08/29/2016 16:09:QS system process) Height (in): 63 (09/12/2016 12:11:QS system process) ALLERGIES Medication Allergy: Yes (08/29/2016 16:09:Lisa Gonzalez RN) Medication Allergies: Penicillins/MO/Hives (09/10/2016) (09/10/2016 22:21:QS system process) Latex Allergy: No Latex Allergies (08/29/2016 16:09:Lisa Gonzalez RN) Food Allergies: none (08/29/2016 16:09:April Shea RN) Environmental Allergies: none (08/29/2016 16:09:April Shea RN) COMMUNICATION Primary Language: Irish (08/29/2016 16:09:Lisa Gonzalez RN) Medical Tx Preferred Language: Irish (08/29/2016 16:09:Christel Roach RN) Communication Barrier(s): None (08/29/2016 16:09:Christel Roach RN) DEMOGRAPHICS Address: [address] [place] [id number] (01/03/2016 20:08:QS system process) Zipcode: [address] (01/03/2016 20:08:QS system process) Home (01/03/2016 20:08:QS system process) Work (01/03/2016 20:08:QS system process) SSN: [id number] (01/03/2016 20:08:QS system process) Next of Kin Name: ELIEZER JC (01/03/2016 20:08:QS system process) Next of Kin (01/03/2016 20:08:QS system process) Next of Kin Relationship: SPO (01/03/2016 20:08:QS system process) Date of : 1990 (01/03/2016 20:08:QS system process) Marital Status: (01/03/2016 20:08:QS system process) Sex: Female (01/03/2016 20:08:QS system process) Race: (01/03/2016 20:08:QS system process) Ethnicity: Non- or (01/03/2016 20:08:QS system process) Anabaptist: Other (01/03/2016 20:08:QS system process) DRUG AND ALCOHOL USE Alcohol: No (08/29/2016 16:09:Emmy Ellsworth RN) Cigarettes: Never Smoker. [id number] (08/29/2016 16:09:Emmy Ellsworth RN) Marijuana: No (08/29/2016 16:09:Emmy Ellsworth RN) Cocaine: No (08/29/2016 16:09:Emmy Ellsworth RN) Other Illicit Drugs: No (08/29/2016 16:09:Emmy Ellsworth RN) VACCINE HISTORY Influenza Vaccine: Yes (08/29/2016 16:09:Lisa Gonzalez RN) Influenza Date: 06/25/16 (08/29/2016 16:09:Lisa Gonzalez RN) Pneumococcal Vaccine: No (08/29/2016 16:09:April Shea RN) Tetanus Vaccine: Yes (08/29/2016 16:09:Lisa Gonzalez RN) Tetanus Date: 08/23/2013 (08/29/2016 16:09:Lisa Gonzalez RN) Tdap Vaccine: Yes (08/29/2016 16:09:Lisa Gonzalez RN) Tdap Date: 08/23/2013 (08/29/2016 16:09:Lisa Gonzalez RN) Hepatitis B Vaccine: Yes (08/29/2016 16:09:April Shea RN) Glass Curvature Gauger: [facility] (08/29/2016 16:09:Emmy Ellsworth RN) Feeding Preference: Breast (08/29/2016 16:09:Emmy Ellsworth RN) Benefit of Breast Feed Discussed: Yes (08/29/2016 16:09:Emmy Ellsworth RN) Circumcision: N/A (08/29/2016 16:09:Emmy Ellsworth RN) Classes Attended: No (08/29/2016 16:09:Emmy Ellsworth RN) Tubal Ligation: No (08/29/2016 16:09:Emmy Ellsworth RN) Tubal Authorization Signed: N/A (08/29/2016 16:09:Emmy Ellsworth RN) Consent: N/A (08/29/2016 16:09:Emmy Ellsworth RN) Consent Signed: N/A (08/29/2016 16:09:Emmy Ellsworth RN) Pain Management Plans: Epidural (08/29/2016 16:09:Emmy Ellsworth RN) Plans for Labor and Delivery: Other, Specify (08/29/2016 16:09:Emmy Ellsworth RN) Other Labor and Delivery Plans: delayed cord clamping, guide baby out (08/29/2016 16:09:Emmy Ellsworth RN) Support Person: Eliezer Jc (08/29/2016 16:09:Emmy Ellsworth RN) Support Person Relationship: (08/29/2016 16:09:Emmy Ellsworth RN) Cultural/Spritual Practice: No (08/29/2016 16:09:Emmy Ellsworth RN) Spir/Cult Dietary Needs: No (08/29/2016 16:09:Emmy Ellsworth RN) LIVING SITUATION/DISCHARGE PLAN Living Arrangements: House (08/29/2016 16:09:Emmy Ellsworth RN) Adequate Access to:: Electric; Heat; Refrigeration; Plumbing/Running water; Phone; Transportation (08/29/2016 16:09:Emmy Ellsworth RN) WIC Program: Yes (08/29/2016 16:09:Emmy Ellsworth RN) Discharge Banjo Repairer Person: Eliezer Jc (08/29/2016 16:09:Emmy Ellsworth RN) Person to Help after Discharge: yes (08/29/2016 16:09:Emmy Ellsworth RN) Currently Using Commun Resources: Yes (08/29/2016 16:09:Emmy Ellsworth RN) Specify Current Resource Used: Medicaid (08/29/2016 16:09:Emmy Ellsworth RN) Car Seat for Discharge: Yes (08/29/2016 16:09:Emmy Ellsworth RN) Adoption Requested: No (Annotations: Data stored by CPN on behalf of user) (08/29/2016 16:09:Emmy Ellsworth RN) LABS Blood Type: O Negative (08/29/2016 16:09:Lisa Gonzalez RN) Antibody Screen: negative (08/29/2016 16:09:Emmy Ellsworth RN) Hemoglobin: 11.4 L (09/12/2016 07:08:QS system process) Hematocrit: 34.2 L (09/12/2016 07:08:QS system process) MCV: 93 (09/12/2016 07:08:QS system process) Group Beta Strep: negative (08/29/2016 16:09:Emmy Ellsworth RN) Gonorrhea: Negative (08/29/2016 16:09:Lisa Gonzalez RN) Chlamydia: Negative (08/29/2016 16:09:Lisa Gonzalez RN) RPR/VDRL: Nonreactive (08/29/2016 16:09:Emmy Ellsworth RN) Hepatitis B: Negative (08/29/2016 16:09:Lisa Gonzalez RN) Rubella: Immune (08/29/2016 16:09:Lisa Gonzalez RN) OB/PREVIOUS HISTORY Current Procedures: Ultrasound; NST (08/29/2016 16:09:April Shea RN) Comments Obstetrical History: G1: SAB G2:10/03/13 39.2 weeks G3: current (08/29/2016 16:09:Lisa Gonzalez RN)
== END 2016-09-12 17:50 | disposition home or self-care (01) | DRG 775 ==
LOC: LC 22:09 → LR 22:33 → 2S 09-11 04:25
PROVIDERS: ADMIT Obstetrics & Gynecology; ATTEND Obstetrics & Gynecology
PROC: 4A1HXCZ Monitoring of Products of Conception, Cardiac Rate, External Approach (ICD-10-PCS; 2016-09-10)
PROC: 10E0XZZ Delivery of Products of Conception, External Approach (ICD-10-PCS; principal; 2016-09-11)
PROC: 0KQM0ZZ Repair Perineum Muscle, Open Approach (ICD-10-PCS; 2016-09-11)
DX: O48.0 Post-term pregnancy (principal); O69.81X0 Labor and delivery complicated by cord around neck, without compression, not applicable or unspecified; O70.1 Second degree perineal laceration during delivery; Z88.0 Allergy status to penicillin; Z3A.41 41 weeks gestation of pregnancy; Z37.0 Single live birth
CPT/HCPCS: 36415; 80307; 81005; 85025; 85027; 86592; 86850; 86900; 86901; J2590; J3490

== ENCOUNTER 2018-09-02 19:00 | Inpatient (IN) | payer BC, MEDICAID ==
[2018-09-02 19:35] LABS: APPEARANCE,URINE SLIGHTLY-CLOUDY; BILIRUBIN,URINE NEGATIVE (NEGATIVE); COLOR,URINE YELLOW; GLUCOSE, URINE NEGATIVE (NEGATIVE); KETONES,URINE NEGATIVE (NEGATIVE); LEUKOCYTE ESTERASE,URINE LARGE (NEGATIVE); NITRITE,URINE NEGATIVE (NEGATIVE); PROTEIN,URINE NEGATIVE (NEGATIVE); UROBILINOGEN,URINE NEGATIVE mg/dL (<2.0)
[2018-09-02 20:34] LABS: URINE AMPHETAMINES SCREEN NEGATIVE; URINE BARBITURATES SCREEN NEGATIVE; URINE BENZODIAZEPINES SCREEN NEGATIVE; URINE COCAINE SCREEN NEGATIVE; URINE MARIJUANA (THC) SCREEN NEGATIVE; URINE METHADONE SCREEN NEGATIVE; URINE PHENCYCLIDINE SCREEN NEGATIVE
[2018-09-02] MEDS ORDERED: RINGERS SOLUTION,LACTATED 1,000 ML IV PRN (21:35)
[2018-09-02] MEDS ORDERED: RINGERS SOLUTION,LACTATED 1,000 ML IV ONE (21:35)
[2018-09-02 22:13] LABS: ABSOLUTE EOSINOPHILS # (AUTO) 0.1 10^3/uL (0.0-0.6); ABSOLUTE LYMPHOCYTES (AUTO) 2.1 10^3/uL (0.5-4.7); ABSOLUTE MONOCYTES (AUTO) 0.7 10^3/uL (0.1-1.4); ABSOLUTE NEUT (AUTO) 8.6 10^3/uL (1.7-8.2); BASOPHILS % (AUTO) 0.2 % (0-2); EOSINOPHILS % (AUTO) 0.7 % (0-6); HEMATOCRIT 31.1 % (36.0-47.0); HEMOGLOBIN 10.8 g/dL (12.0-15.5); LYMPHOCYTES % (AUTO) 18.2 % (13-45); MEAN CORPUSCULAR HEMOGLOBIN 30.8 pg (27.0-33.4); MEAN CORPUSCULAR HGB CONC 34.6 g/dL (32.0-36.0); MEAN CORPUSCULAR VOLUME 89 fl (80-97); MONOCYTES % (AUTO) 5.9 % (3-13); PLATELET COUNT 208 10^3/uL (150-450); RED BLOOD COUNT 3.49 10^6/uL (3.72-5.28); RED CELL DISTRIBUTION WIDTH 14.8 % (11.5-14.0); TOTAL CELLS COUNTED % (AUTO) 100 %; WHITE BLOOD COUNT 11.5 10^3/uL (4.0-10.5)
[2018-09-02] MEDS ORDERED: EPHEDRINE SULFATE INJ 50 MG/1 ML AMPULE ONE (22:35)
[2018-09-02] MEDS ORDERED: FENTANYL/BUPIVACAINE/NS/PF 300 MCG/150 ML RTUINJ EPI ONE (22:35)
[2018-09-02] MEDS ORDERED: BUPIVACAINE HCL 0.5 % INJ/PF 30 ML SDV ONE (22:36)
[2018-09-02] MEDS ORDERED: LIDOCAINE 1% INJ-PF (10 MG/ML) 30 ML SDV ONE (22:36)
[2018-09-02] MEDS ORDERED: MISOPROSTOL 0.2 MG TABLET ONE (22:36)
[2018-09-02] MEDS ORDERED: OXYTOCIN/NORMAL SALINE 20 UNIT/1,000 ML RTUINJ ONE (22:36)
[2018-09-02] MEDS ORDERED: BUPIVACAINE HCL 0.25 % INJ/PF (2.5 MG/1 ML) 30 ML VIAL ONE (23:02)
[2018-09-03] MEDS ORDERED: OXYTOCIN/NORMAL SALINE 20 UNIT/1,000 ML RTUINJ IV PRN ×2 (01:41→15:25)
--- NOTE | 2018-09-03 05:15 | Admission Physical ---
Datetime Report Generated by CPN: 09/03/2018 05:14 CURRENT ADMISSION Chief Complaint: Uterine Contractions Indication for Induction: Not Applicable Admit Impression : Term, Intrauterine Admit Plan: Admit to Unit; Initiate Labor Protocol ALLERGIES Medication Allergies: Yes Medication Allergies: Penicillins/MO/Hives (09/02/2018) Latex: No Latex Allergies Food Allergies: NKA Environmental Allergies: NKA OBSTETRICAL HISTORY EDC: 09/09/2018 00:00 : 4 Para: 2 Term: 2 : 0 SAB: 1 IAB: 0 Livin Cesareans: 0 VBACs: 0 Gestational Diabetes: No Rh Sensitization: No Incompetent Cervix: No TYLOR: No Infertility: No ART Treatment: No Uterine Anomaly: No IUGR: No Hx Previous C/S: No Macrosomia: No Hx Loss/Stillborn: No PIH: No Hx : No Placenta Previa/Abruption: No Depression/PP Depression: No PTL/PROM: No Post Hemorrhage: No Current Procedures: Ultrasound Obstetrical History Comments: Pt reports: G1- SAB G2 2013 Female 6lbs @ 39.4 weeks G3- 09/2016 Female 7lbs 2oz @ 41 weeks G4- Current SEE RECORDS Alcohol: No Marijuana : No Cocaine: No Other Illicit Drugs: No Cigarettes: Never Smoker. [id number] MEDICAL HISTORY Diabetes: No Blood Transfusion: No Pulmonary Disease (Asthma, TB): No Breast Disease: No Hypertension: No Box Toe Cutter Surgery: No Heart Disease: No Hosp/Surgery: Yes Autoimmune Disorder: No Anesthetic Complications: No Kidney Disease: No Abnormal Pap Smear: No Neuro/Epilepsy: No Psychiatric Disorders: No Hepatitis/Liver Disease: No Significant Family History: No Varicosities/Phlebitis: No Trauma/Violence : No Thyroid Dysfunction: No Medical History Comments: Previous hospitalization r/t previous INFECTIOUS HISTORY Gonorrhea: No Genital Herpes: No Chlamydia: No Tuberculosis: No Syphilis: No Hepatitis: No HIV/AIDS Exposure: No Rash or Viral Illness: No HPV: No Infectious History Comments: Per pt record: HSV 1 PHYSICAL EXAM General: Normal HEENT: Normal Neurologic: Normal Thyroid: Normal Heart: Normal Lungs: Normal Breast: Normal Back: Normal Abdomen: Normal Genitourinary Exam: Normal Extremities: Normal DTRs: Normal Pelvic Type: Adequate Vital Signs: Reviewed; Within Normal Limits VAGINAL EXAM Dilatation: 4 Effacement: 60 Station: -2 Contraction Comments: irregular MEMBRANES Membranes: Intact FETUS A EGA: 39.1 Monitoring: External US FHR- Baseline: 130s Variability: Moderate 6-25bpm Accelerations: 15X15 Decelerations: None FHR Category: Category I PLANS FOR LABOR AND DELIVERY Labor and Delivery: Other, Specify Pain Management: Epidural Feeding Preference: Both Benefit of Breast Feed Discussed: Yes Circumcision: Yes INFORMED CONSENT Signature: with User ID: [email or web address]
[2018-09-03] MEDS ORDERED: BUPIVACAINE HCL 0.25 % INJ/PF (2.5 MG/1 ML) 30 ML VIAL ONE (09:14)
[2018-09-03] MEDS ORDERED: ZOLPIDEM TARTRATE 5 MG TABLET PO PRN (15:25)
[2018-09-03] MEDS ORDERED: BENZOCAINE/MENTHOL AEROSOL SPRAY 56 ML TOP PRN (15:25)
[2018-09-03] MEDS ORDERED: DIPH/PERTUSS(ACELL)/TETANUS VAC/PF 0.5 ML SYR (>=10YO) IM PRN (15:25)
[2018-09-03] MEDS ORDERED: MEASLES,MUMPS&RUBELLA VACC/PF 0.5 ML VIAL SUBCUT PRN (15:25)
[2018-09-03] MEDS ORDERED: DIBUCAINE 1% OINTMENT 28 GM TP PRN (15:25)
[2018-09-03] MEDS ORDERED: ACETAMINOPHEN WITH CODEINE #3 TABLET PO PRN (15:25)
[2018-09-03] MEDS ORDERED: IBUPROFEN 800 MG TABLET ONE (15:30)
--- NOTE | 2018-09-03 18:11 | Delivery Summary ---
Del Sum A-C Datetime Report Generated by CPN: 09/03/2018 18:11 DELIVERY PERSONNEL DELIVERY PERSONNEL: [id number] Delivery Doctor:: Lulu Molina MD Labor and Delivery Nurse:: Valencia Olsen RNintegrated specialist Nurse:: Flaca Colón RN Nursery Nurse:: Tameka Liang RN Senior Sql Database Developer/LEAD BUSINESS ANALYST: Zehra Bueno, ADMINISTRATIVE HEARING OFFICER MATERNAL INFORMATION Delivery Anesthesia: Epidural Medications After Delivery: Pitocin Bolus-Please Comment Meds After Delivery Comment: pitocin 20 units in 1 L NS bolusing per order Estimated Blood Loss (ml): 200 Maternal Complications: None LABOR SUMMARY EDC: 09/09/2018 00:00 No. Babies in Womb: 1 Attempted: No Labor Anesthesia: Epidural LABOR INFORMATION Reason for Induction: Not Applicable Onset of Labor: 09/02/2018 23:00 Complete Dilatation: 09/03/2018 10:11 Oxytocin: Augmentation Group B Beta Strep: negative Antibiotics # of Doses: 0 Steroids Given: None Reason Steroids Not Administered: Not Applicable MEMBRANES Membranes Rupture Method: Artificial Rupture of Membranes: 09/03/2018 08:29 Length of Rupture (hr): 2.08 Amniotic Fluid Color: Clear Amniotic Fluid Amount: Moderate Amniotic Fluid Odor: Normal STAGES OF LABOR Stage 1 hr: 11 Stage 1 min: 11 Stage 2 hr: 0 Stage 2 min: 23 Stage 3 hr: 0 Stage 3 min: 3 Total Time in Labor hr: 11 Total Time in Labor min: 37 VAGINAL DELIVERY Episiotomy: None Laceration #1: Vaginal Laceration Extension #1: First Degree Laceration Repair: Yes Laceration Repair Note: 2-0 chromic figure of eight x 2. Sponge Count Correct: Yes Sharps Count Correct: Yes CSECTION DELIVERY Primary Indication: N/A Secondary Indication: N/A CSection Incidence: N/A Labor: N/A Elective: N/A CSection Incision: N/A BABY A INFORMATION Infant Delivery Date/Time: 09/03/2018 10:34 Method of Delivery: Vaginal Born in Route : No : N/A Forceps: N/A Vacuum Extraction: Successful Shoulder Dystocia : No PRESENTATION/POSITION BABY A Presentation: Cephalic Cephalic Presentation: Vertex Breech Presentation: N/A PLACENTA INFORMATION BABY A Placenta Delivery Time : 09/03/2018 10:37 Placenta Method of Delivery: Spontaneous Placenta Status: Delivered SCORES BABY A Heart Rate 1 min: >100 bpm Resp Effort 1 min: Good Cry Reflex Irritability 1 min: Cough or Sneeze or Pulls Away Muscle Tone 1 min: Active Motion Color 1 min: Body [place], Extremities Blue Resuscitation Effort 1 min: Tactile Stimulation SCORE 1 MIN: 9 Heart Rate 5 min: >100 bpm Resp Effort 5 min: Good Cry Reflex Irritability 5 min: Cough or Sneeze or Pulls Away Muscle Tone 5 min: Active Motion Color 5 min: Body [place], Extremities Blue Resuscitation Effort 5 min: Tactile Stimulation SCORE 5 MIN: 9 INFORMATION BABY A Gestational Age at Delivery: 39.1 Gestational Status: Full Term- 39- 40.6 Weeks Infant Outcome : Liveborn Condition : Stable Infant Sex: Male IDENTIFICATION BABY A Infant Verification Date/Time: 09/03/2018 11:39 ID Band Number: [id number] Mother's Name Verified: Yes RN Verifying : Adelita Olsen RN, B Kristindonis RN WEIGHT/LENGTH BABY A Birthweight (gm): 3955 Weight (lb): 8 Infant Weight (oz): 12 Length (in): 20.50 Infant Length (cm): 52.07 CORD INFORMATION BABY A No. Cord Vessels: 3 Nuchal Cord : N/A Cord Blood Taken: Yes-For Eval (Mom's Blood Type - or O+) Suction: None ASSESSMENT BABY A Physical Findings at Delivery: Within Normal Limits; Caput Succedaneum Infant Respirations: Appears Normal Skin to Skin: Yes Skin to Skin Time (min): 60 Infant Care By: Florinda Liang RN Transferred To: Remains with Mother BABY B INFORMATION : N/A SIGNATURES Signature: with User ID: Melissa
[2018-09-03] MEDS: FERROUS SULFATE 325 MG TABLET PO SCH (20:24)
[2018-09-03] MEDS: DOCUSATE SODIUM 100 MG CAPSULE PO SCH (20:24)
[2018-09-03] MEDS: IBUPROFEN 800 MG TABLET PO SCH (22:34)
[2018-09-04] MEDS: IBUPROFEN 800 MG TABLET PO SCH ×3 (05:59→21:29)
[2018-09-04 08:48] LABS: HEMATOCRIT 30.1 % (36.0-47.0); HEMOGLOBIN 10.2 g/dL (12.0-15.5); MEAN CORPUSCULAR HEMOGLOBIN 30.8 pg (27.0-33.4); MEAN CORPUSCULAR VOLUME 91 fl (80-97); PLATELET COUNT 195 10^3/uL (150-450); RED BLOOD COUNT 3.32 10^6/uL (3.72-5.28); RED CELL DISTRIBUTION WIDTH 15.1 % (11.5-14.0); WHITE BLOOD COUNT 12.5 10^3/uL (4.0-10.5)
--- NOTE | 2018-09-04 09:04 | PDOC PROGRESS REPORT ---
Subjective-OB Progress Note for:: 09/04/18 Subjective: Pt doing well, no concerns. She reports light bleeding, reg diet and voiding well. Physical Exam (OB) Vital Signs: Temp Pulse Resp BP Pulse Ox 98.3 F 78 16 93/52 L 99 09/04/18 08:00 09/04/18 08:00 09/04/18 08:00 09/04/18 08:00 09/04/18 08:00 Intake & Output 09/03/18 09/04/18 09/05/18 06:59 06:59 06:59 Intake Total 2102 Balance 210 Weight 92.2 kg - Lochia Lochia Amount: Scant < 10 ml Lochia Color: Rubra/Red - Abdomen Description: Soft, Round Hernia Present: No Fundal Description: Firm, Midline Fundal Height: u/u - u/2 Objective-Diagnostic Laboratory: 09/04/18 07:36 09/04/18 07:36 WBC 12.5 H RBC 3.32 L Hgb 10.2 L Hct 30.1 L MCV 91 MCH 30.8 MCHC 34.0 RDW 15.1 H Plt Count 195 Assessment and Plan(PN) - Assessment and Plan (1) Vacuum extractor delivery, delivered Is this a current diagnosis for this admission?: Yes - Time Spent with Patient Time with patient: Less than 15 minutes Medications reviewed and adjusted accordingly: Yes - Disposition Anticipated Discharge: Home Within: within 24 hours
[2018-09-04] MEDS: FERROUS SULFATE 325 MG TABLET PO SCH ×2 (09:37→17:25)
[2018-09-04] MEDS: DOCUSATE SODIUM 100 MG CAPSULE PO SCH ×2 (09:37→17:25)
[2018-09-04] MEDS: PRENATAL VITAMIN W DHA CAPSULE PO SCH (09:37)
[2018-09-04] MEDS: SENNOSIDES/DOCUSATE 8.6-50 MG 1 EACH TABLET PO SCH (09:38)
[2018-09-04] MEDS: ACETAMINOPHEN WITH CODEINE #3 TABLET PO PRN (17:29)
[2018-09-05] MEDS: ACETAMINOPHEN WITH CODEINE #3 TABLET PO PRN (01:11)
[2018-09-05] MEDS: IBUPROFEN 800 MG TABLET PO SCH ×2 (06:13→13:39)
--- NOTE | 2018-09-05 08:16 | PDOC DISCHARGE SUMMARY ---
Final Diagnosis Discharge Date: 09/05/18 - Final Diagnosis (1) Vacuum extractor delivery, delivered Is this a current diagnosis for this admission?: Yes Discharge Data - Discharge Medication Home Medications: Pnv W-O Ca No5/Fe Fumarate/FA [-U Multiple Vitamin Capsule] 1 each PO DAILY 03/02/12 Reason(s) for Admission: Onset of Labor Procedures: NST Intrapartum Procedure(s): Vacuum Extraction Complication(s): Laceration-Perineal Laceration-Degree: 1st - Diagnosis Test Laboratory: 09/02/18 09/02/18 19:08 21:50 RBC 3.49 L Hgb 10.8 L Hct 31.1 L Urine Opiates Screen NEGATIVE - Discharge information/Instructions Discharge Activity: Balance Activity w/Rest, Pelvic Rest Discharge Diet: Regular Disposition: HOME, SELF-CARE Follow up with: [facility] in: 3, Weeks
[2018-09-05] MEDS: SENNOSIDES/DOCUSATE 8.6-50 MG 1 EACH TABLET PO SCH (09:25)
[2018-09-05] MEDS: DOCUSATE SODIUM 100 MG CAPSULE PO SCH ×2 (09:25→17:01)
[2018-09-05] MEDS: PRENATAL VITAMIN W DHA CAPSULE PO SCH (09:25)
[2018-09-05] MEDS: FERROUS SULFATE 325 MG TABLET PO SCH ×2 (09:25→17:01)
[2018-09-05 11:48] VITALS: BP 106/65
== END 2018-09-05 18:07 | disposition home or self-care (01) | DRG 807 ==
LOC: LC 19:00 → LR 21:11 → 2S 09-03 18:27
PROVIDERS: ADMIT Obstetrics & Gynecology; ATTEND Obstetrics & Gynecology
PROC: 10D07Z6 Extraction of Products of Conception, Vacuum, Via Natural or Artificial Opening (ICD-10-PCS; principal; 2018-09-03)
PROC: 0HQ9XZZ Repair Perineum Skin, External Approach (ICD-10-PCS; 2018-09-03)
PROC: 4A1HXCZ Monitoring of Products of Conception, Cardiac Rate, External Approach (ICD-10-PCS; 2018-09-03)
DX: O75.81 Maternal exhaustion complicating labor and delivery (principal); Z37.0 Single live birth; O70.0 First degree perineal laceration during delivery; Z3A.39 39 weeks gestation of pregnancy
CPT/HCPCS: 36415; 80307; 81005; 84112; 85025; 85027; 85461; 86592; 86850; 86900; 86901; 94760; J2590; J2790; J3010; J3490